=== PATIENT | female | born 1950 | race Caucasian/White ===

== ENCOUNTER 2019-11-24 20:32 | Inpatient (IN) | payer MEDICARE, OTHER ==
[2019-11-24] MEDS ORDERED: Sodium Chloride 0.9% 10 ML Syringe FLUSH PRN (20:58)
[2019-11-24] MEDS ORDERED: Sodium Chloride 0.9% 1,000 ML IV ONE (20:58)
[2019-11-24] MEDS ORDERED: Acetaminophen 500 MG Tab PO ONE (20:59)
--- NOTE | 2019-11-24 21:05 | EDM.PDOC ---
ED HPI GENERAL MEDICAL PROBLEM - General Chief Complaint: Fever Stated Complaint: weakness/fever Time Seen by Provider: 11/24/19 20:50 Source of Information: Reports: Patient History Limitations: Reports: No Limitations - History of Present Illness INITIAL COMMENTS - FREE TEXT/NARRATIVE: 69 YO WF with PMH of Pancreatic CA on chemo therapy presents to ER with complaints of weakness and low grade fever x 3 days. Pt reports she was diagnosed with a UTI 1 week ago. Pt went to Oncologist and had a fever at that time urine showed UTI and patient was started on Cipro. Pt had Chemo infusion which began 11/20/2019 and finished 11/22/2019 and since that time she has felt weak , no appetite, with mild abdominal pain which has been constant since her pancreatic CA diagnosis. Pt denies chest pain, shortness of breath, no cough/ congestion. Pt denies any recent travel or COVID exposures. Pt denies dysuria, frequency or urgency. Pt alert and oriented x 4. Pt reports no nausea/vomiting, no diarrhea. Onset Date: 11/22/19 Duration: Day(s): (3) Location: Reports: Generalized Severity: Mild Improves with: Reports: None Worsens with: Reports: None Associated Symptoms: Reports: Fever/Chills, Loss of Appetite, Malaise, Weakness Right Upper Abdomen Pain Score (Numeric/FACES): 5 - Related Data Allergies Allergy/AdvReac Type Severity Reaction Status Date / Time No Known Allergies Allergy Verified 11/24/19 21:01 Home Meds: Home Meds Aspirin [Halfprin] 81 mg PO DAILY 11/22/19 [History] Ciprofloxacin [Ciprofloxacin HCl] 500 mg PO DAILY 11/22/19 [History] Levothyroxine 150 mcg PO ACBREAKFAST 11/22/19 [History] Loperamide [Imodium] 4 mg PO ASDIRECTED PRN 11/22/19 [History] Ondansetron [Zofran ODT] 4 mg PO TID PRN 11/22/19 [History] Prochlorperazine [Compazine] 10 mg PO Q6H PRN 11/22/19 [History] atorvaSTATin [Lipitor] 10 mg PO DAILY 11/22/19 [History] dexAMETHasone [Dexamethasone] 8 mg PO DAILY 11/22/19 [History] fluorouraciL [Fluorouracil] 4,440 mg IV ASDIRECTED 11/22/19 [History] oxyCODONE 5 mg PO Q6H PRN 11/22/19 [History] Past Medical History HEENT History: Reports: Impaired Vision [employer] History: Reports: Endocrine/Metabolic History: Reports: Hypothyroidism Immunologic History: Reports: Immunosuppression Oncologic (Cancer) History: Reports: Pancreatic, Other (See Below) Other Oncologic History: malignant neoplasm of the head of the pancreas - Past Surgical History HEENT Surgical History: Reports: Adenoidectomy, Tonsillectomy GI Surgical History: Reports: Colonoscopy Female Surgical History: Reports: Hysterectomy Social & Family History - Family History Family Medical History: Noncontributory - Caffeine Use Caffeine Use: Reports: None ED ROS GENERAL - Review of Systems Review Of Systems: See Below Constitutional: Reports: Fever, Chills, Malaise, Weakness HEENT: Reports: No Symptoms Respiratory: Reports: No Symptoms Cardiovascular: Reports: No Symptoms Endocrine: Reports: No Symptoms GI/Abdominal: Reports: Anorexia : Reports: No Symptoms Musculoskeletal: Reports: No Symptoms Skin: Reports: No Symptoms Neurological: Reports: No Symptoms Psychiatric: Reports: No Symptoms Hematologic/Lymphatic: Reports: No Symptoms Immunologic: Reports: No Symptoms ED EXAM, SEPSIS - Physical Exam Exam: See Below Exam Limited By: No Limitations General Appearance: Alert, WD/WN, No Apparent Distress Throat/Mouth: Normal Inspection, Normal Lips, Normal Teeth, Normal Gums, Normal Oropharynx, Normal Voice, No Airway Compromise Head: Atraumatic, Normocephalic Neck: Normal Inspection, Supple, Non-Tender, Full Range of Motion Respiratory/Chest: No Respiratory Distress, Lungs Clear, Normal Breath Sounds, No Accessory Muscle Use, Chest Non-Tender Cardiovascular: Normal Peripheral Pulses, Regular Rate, Rhythm, No Edema, No Gallop, No JVD, No Murmur, No Rub GI/Abdominal Exam: Normal Bowel Sounds, Soft, Non-Tender, No Organomegaly, No Distention, No Abnormal Bruit, No Mass, Pelvis Stable Back: Normal Inspection, Full Range of Motion, NT Extremities: Normal Inspection, Normal Range of Motion, Non-Tender, No Pedal Edema, Normal Capillary Refill Neurological: Alert, Oriented, CN II-XII Intact, Normal Cognition, Normal Gait, Normal Reflexes, No Motor/Sensory Deficits Psychiatric: Normal Affect, Normal Mood Skin: Warm, Dry, Intact, Normal Color, No Rash Lymphatic: Bilateral: No Adenopathy Course - Vital Signs Last Recorded V/S: Last Vital Signs Temp 37.8 C 11/24/19 21:17 Pulse 95 11/24/19 21:33 Resp 18 11/24/19 21:33 BP 113/73 11/24/19 21:33 Pulse Ox 91 L 11/24/19 20:35 - Orders/Labs/Meds Orders: Active Orders 24 hr Category Date Time Status Chest 2V [CR] Stat Exams 11/24/19 20:58 Ordered CULTURE BLOOD [BC] Stat Lab 11/24/19 20:58 Ordered CULTURE BLOOD [BC] Stat Lab 11/24/19 20:58 Ordered Sodium Chloride 0.9% [Normal Saline] 1,000 ml Med 11/24/19 20:58 Ordered IV BOLUS Sodium Chloride 0.9% [Saline Flush] Med 11/24/19 20:58 Ordered 10 ml FLUSH Q8HR PRN Blood Culture x2 Reflex Set [OM.PC] Stat Oth 11/24/19 20:58 Ordered Saline Lock Insert [OM.PC] Stat Oth 11/24/19 20:58 Ordered Severe Sepsis Onset Time [OM.PC] Stat Oth 11/24/19 20:58 Ordered Medication Orders Sodium Chloride (Normal Saline) 1,000 mls @ 1,000 mls/hr IV BOLUS ONE Stop: 11/24/19 21:57 Last Admin: 11/24/19 21:16 Dose: 1,000 mls/hr Sodium Chloride (Saline Flush) 10 ml FLUSH Q8HR PRN PRN Reason: keep vein open Labs: Laboratory Tests 11/24/19 11/24/19 11/24/19 Range/Units 21:10 21:10 21:10 WBC 27.91 H (5.00-10.00) 10^3/uL RBC 4.06 (3.80-5.50) 10^6/uL Hgb 10.4 L (12.0-16.0) g/dL Hct 31.4 L (37.0-47.0) % MCV 77.3 L (82.0-92.0) fL MCH 25.6 L (27.0-31.0) pg MCHC 33.1 (32.0-36.0) g/dL RDW 14.6 H (11.5-14.5) % Plt Count 278 (150-400) 10^3/uL MPV 9.4 (7.4-10.4) fL Add Manual Diff Yes Neutrophils % (Manual) 87 H (50-70) % Band Neutrophils % 5 (4-12) % Lymphocytes % (Manual) 4 L (20-40) % Monocytes % (Manual) 3 (2-8) % Eosinophils % (Manual) 1 (1-3) % Absolute Neutrophils 25.6772 Lymphocytes # (Manual) 1.1164 Monocytes # (Manual) 0.8373 Eosinophils # (Manual) 0.2791 Sodium 129 L (136-145) mmol/L Potassium 3.6 (3.3-5.3) mmol/L Chloride 90 L (98-115) mmol/L Carbon Dioxide 26.8 (21.0-32.0) mmol/L Anion Gap 15.8 H (5-15) mmol/L BUN 15 (6-25) mg/dL Creatinine 0.61 (0.51-1.17) mg/dL Est Cr Clr Drug Dosing 83.45 mL/min Estimated GFR (MDRD) > 60 mL/min Glucose 259 H (75 - 99) mg/dL Lactic Acid 1.6 (0.4-2.0) mmol/L Calcium 8.4 L (8.7-10.3) mg/dL Total Bilirubin 0.7 (0.2-1.0) mg/dL AST 28 (15-37) U/L ALT 31 (12-78) U/L Alkaline Phosphatase 255 H (46-116) IU/L Total Protein 6.0 L (6.4-8.2) g/dL Albumin 1.63 L (3.00-4.80) g/dL Specimen Type Urine Color (YELLOW) Urine Appearance (CLEAR) Urine pH (5.0-9.0) Ur Specific [place] (1.005-1.030) Urine Protein (NEGATIVE) mg/dL Urine Glucose (UA) (NEGATIVE) mg/dL Urine Ketones (NEGATIVE) mg/dL Urine Occult Blood (NEGATIVE) Urine Nitrite (NEGATIVE) Urine Bilirubin (NEGATIVE) Urine Urobilinogen (0.2-1.0) E.U./dL Ur Leukocyte Esterase (NEGATIVE) Urine RBC (0-5) /HPF Urine WBC (0-5) /HPF Ur Epithelial Cells /LPF Urine Bacteria (NONE TO FEW) /HPF 11/24/19 Range/Units 21:20 WBC (5.00-10.00) 10^3/uL RBC (3.80-5.50) 10^6/uL Hgb (12.0-16.0) g/dL Hct (37.0-47.0) % MCV (82.0-92.0) fL MCH (27.0-31.0) pg MCHC (32.0-36.0) g/dL RDW (11.5-14.5) % Plt Count (150-400) 10^3/uL MPV (7.4-10.4) fL Add Manual Diff Neutrophils % (Manual) (50-70) % Band Neutrophils % (4-12) % Lymphocytes % (Manual) (20-40) % Monocytes % (Manual) (2-8) % Eosinophils % (Manual) (1-3) % Absolute Neutrophils Lymphocytes # (Manual) Monocytes # (Manual) Eosinophils # (Manual) Sodium (136-145) mmol/L Potassium (3.3-5.3) mmol/L Chloride (98-115) mmol/L Carbon Dioxide (21.0-32.0) mmol/L Anion Gap (5-15) mmol/L BUN (6-25) mg/dL Creatinine (0.51-1.17) mg/dL Est Cr Clr Drug Dosing mL/min Estimated GFR (MDRD) mL/min Glucose (75 - 99) mg/dL Lactic Acid (0.4-2.0) mmol/L Calcium (8.7-10.3) mg/dL Total Bilirubin (0.2-1.0) mg/dL AST (15-37) U/L ALT (12-78) U/L Alkaline Phosphatase (46-116) IU/L Total Protein (6.4-8.2) g/dL Albumin (3.00-4.80) g/dL Specimen Type Urinvoid Urine Color Yellow (YELLOW) Urine Appearance Slightly cloudy H (CLEAR) Urine pH 6.0 (5.0-9.0) Ur Specific [place] 1.015 (1.005-1.030) Urine Protein 30 H (NEGATIVE) mg/dL Urine Glucose (UA) Negative (NEGATIVE) mg/dL Urine Ketones Negative (NEGATIVE) mg/dL Urine Occult Blood Negative (NEGATIVE) Urine Nitrite Negative (NEGATIVE) Urine Bilirubin Small H (NEGATIVE) Urine Urobilinogen 1.0 (0.2-1.0) E.U./dL Ur Leukocyte Esterase Negative (NEGATIVE) Urine RBC 0-5 (0-5) /HPF Urine WBC 0-5 (0-5) /HPF Ur Epithelial Cells Moderate H /LPF Urine Bacteria Few (NONE TO FEW) /HPF Meds: Medications Generic Name Dose Route Start Last Admin Trade Name Freq PRN Reason Stop Dose Admin Sodium Chloride 1,000 mls @ 1,000 mls/hr 11/24/19 20:58 11/24/19 21:16 Normal Saline IV 11/24/19 21:57 1,000 mls/hr BOLUS ONE Administration Sodium Chloride 10 ml 11/24/19 20:58 Saline Flush FLUSH Q8HR PRN keep vein open Discontinued Medications Generic Name Dose Route Start Last Admin Trade Name Freq PRN Reason Stop Dose Admin Acetaminophen 1,000 mg 11/24/19 20:59 11/24/19 21:17 Tylenol Extra Strength PO 11/24/19 21:00 1,000 mg ONETIME ONE Administration Morphine Sulfate 4 mg 11/24/19 21:24 Morphine IVPUSH 11/24/19 21:25 ONETIME ONE - Radiology Interpretation Free Text/Narrative:: CXR- atelectesis; small pleural effusions Departure - Departure Time of Disposition: 22:12 Disposition: Admitted As Inpatient 65 Condition: Fair Clinical Impression: Weakness Leukocytosis Qualifiers: Leukocytosis type: unspecified Qualified Code(s): D72.829 - Elevated white blood cell count, unspecified Fever Qualifiers: Encounter type: initial encounter - Discharge Information Referrals: PCP,Not In Area [Primary Care Provider] - Forms: ED Department Discharge Sepsis Event Note - Focused Exam Vital Signs: Vital Signs Temp Temp Pulse Resp BP Pulse Ox 11/24/19 21:33 95 18 113/73 11/24/19 21:17 37.8 C 11/24/19 20:35 37.8 C 112 H 20 104/65 91 L Date Exam was Performed: 11/24/19 Time Exam was Performed: 21:51 - My Orders Last 24 Hours: My Active Orders 11/24/19 20:58 Chest 2V [CR] Stat CULTURE BLOOD [BC] Stat CULTURE BLOOD [BC] Stat Sodium Chloride 0.9% [Normal Saline] 1,000 ml IV BOLUS Sodium Chloride 0.9% [Saline Flush] 10 ml FLUSH Q8HR PRN Blood Culture x2 Reflex Set [OM.PC] Stat Saline Lock Insert [OM.PC] Stat Severe Sepsis Onset Time [OM.PC] Stat - Assessment/Plan Admission H&P: Please use this note as an admission H&P Last 24 Hours: My Active Orders 11/24/19 20:58 Chest 2V [CR] Stat CULTURE BLOOD [BC] Stat CULTURE BLOOD [BC] Stat Sodium Chloride 0.9% [Normal Saline] 1,000 ml IV BOLUS Sodium Chloride 0.9% [Saline Flush] 10 ml FLUSH Q8HR PRN Blood Culture x2 Reflex Set [OM.PC] Stat Saline Lock Insert [OM.PC] Stat Severe Sepsis Onset Time [OM.PC] Stat Assessment:: 1. Leukocytosis 2. Fever 3. Pancreatic CA 4. Recent UTI Plan: 1. Admit to Medicine- Dr Alejandro 2. CBC/CMP in am 3. HgbA1C in am 4. Urine culture 5. Procalcitonin 6. Zosyn 4.5g IV Q6 7. Vanco 1g IV once 8. NS @125cc/hr 9. supportive care
[2019-11-24] MEDS ORDERED: Morphine 2 MG/ML Syringe IVPUSH ONE (21:24)
[2019-11-24 21:42] LABS: ANION GAP 15.8 mmol/L (5-15); CHLORIDE,CL 90 mmol/L (98-115); SODIUM,NA 129 mmol/L (136-145)
[2019-11-24] MEDS ORDERED: Piperacillin/Tazobactam 4.5 GM in Sodium Chloride 0.9% 100 ML IV ONE (22:15)
[2019-11-24] MEDS: Sodium Chloride 0.9% 1,000 ML IV SCH (22:20)
[2019-11-24] MEDS ORDERED: Sodium Chloride 0.9% 1,000 ML ONE (22:22)
--- NOTE | 2019-11-24 22:26 | CR ---
[id number] RAD/RAD Chest PA And Lateral EXAM: RAD Chest PA And Lateral CLINICAL DATA: FEVER COMPARISON: CORRELATION IS MADE WITH AUGUST 05, 2019 FINDINGS: A chest port is seen There is bibasilar discoid atelectasis There are small bilateral effusions The cardiomediastinal contour is stable IMPRESSION: CHEST PORT BIBASILAR DISCOID ATELECTASIS WITH SMALL EFFUSIONS Alfonso Jurado MD 11/24/19 [id number] Thank you for allowing us to participate in the care of your patient.
[2019-11-24] MEDS ORDERED: Sodium Chloride 0.9% 100 ML ONE (22:56)
[2019-11-25] MEDS: Piperacillin/Tazobactam 4.5 GM in Sodium Chloride 0.9% 100 ML IV SCH ×3 (04:35→15:38)
[2019-11-25 07:38] LABS: HEMOGLOBIN A1C 7.4 % (4.3-5.7)
[2019-11-25 07:42] LABS: ANION GAP 13.2 mmol/L (5-15); CHLORIDE,CL 98 mmol/L (98-115); SODIUM,NA 137 mmol/L (136-145)
[2019-11-25] MEDS: Sodium Chloride 0.9% 1,000 ML IV SCH ×2 (09:27→20:24)
--- NOTE | 2019-11-25 09:51 | PCM.HP.2 ---
H&P History of Present Illness - General Date of Service: 11/25/19 Admit Problem/Dx: Admission Diagnosis/Problem Admission Diagnosis/Problem Leukocytosis Source of Information: Patient, Old Records, Provider History Limitations: Reports: No Limitations Right Upper Abdomen Pain Score (Numeric/FACES): 5 - Related Data Allergies/Adverse Reactions: Allergies Allergy/AdvReac Type Severity Reaction Status Date / Time No Known Allergies Allergy Verified 11/24/19 21:01 Home Medications: Home Meds Aspirin [Halfprin] 81 mg PO DAILY 11/22/19 [History] Levothyroxine 150 mcg PO ACBREAKFAST 11/22/19 [History] Loperamide [Imodium] 4 mg PO ASDIRECTED PRN 11/22/19 [History] Ondansetron [Zofran ODT] 4 mg PO TID PRN 11/22/19 [History] Prochlorperazine [Compazine] 10 mg PO Q6H PRN 11/22/19 [History] atorvaSTATin [Lipitor] 10 mg PO DAILY 11/22/19 [History] dexAMETHasone [Dexamethasone] 8 mg PO DAILY 11/22/19 [History] fluorouraciL [Fluorouracil] 4,440 mg IV ASDIRECTED 11/22/19 [History] oxyCODONE 5 mg PO Q6H PRN 11/22/19 [History] Past Medical History HEENT History: Reports: Impaired Vision Genitourinary History: Reports: Other (See Below) Other Genitourinary History: Cipro x7days for UTI, diagnosed on 11/17/19 [employer] History: Reports: Endocrine/Metabolic History: Reports: Hypothyroidism Immunologic History: Reports: Immunosuppression Oncologic (Cancer) History: Reports: Pancreatic, Other (See Below) Other Oncologic History: malignant neoplasm of the head of the pancreas, 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 First round chemo on 11/20/19-11/22/19. - Past Surgical History HEENT Surgical History: Reports: Adenoidectomy, Tonsillectomy GI Surgical History: Reports: Colonoscopy Female Surgical History: Reports: Hysterectomy Social & Family History - Family History Family Medical History: Noncontributory - Tobacco Use Smoking Status *Q: Never Smoker Second Hand Smoke Exposure: No - Caffeine Use Caffeine Use: Reports: None H&P Review of Systems - Review of Systems: Review Of Systems: See Below General: Reports: Fever, Chills, Weakness, Fatigue, Night Sweats, Diaphoresis, Decreased Appetite HEENT: Reports: No Symptoms Pulmonary: Reports: No Symptoms Cardiovascular: Reports: No Symptoms Gastrointestinal: Reports: Abdominal Pain, Anorexia, Decreased Appetite. Denies : Black Stool, Bloody Stool, Constipation, Diarrhea, Difficulty Swallowing, Distension, Nausea, Vomiting Genitourinary: Reports: No Symptoms Musculoskeletal: Reports: No Symptoms Skin: Reports: No Symptoms Psychiatric: Reports: No Symptoms Neurological: Reports: No Symptoms Hematologic/Lymphatic: Denies: Swollen Glands Immunologic: Reports: No Symptoms Exam - Exam Exam: See Below - Vital Signs Vital Signs: Last Vital Signs Temp 98.5 F 11/25/19 06:03 Pulse 77 11/25/19 06:03 Resp 18 11/25/19 06:03 BP 100/61 11/25/19 06:03 Pulse Ox 94 L 11/25/19 06:03 Weight: 164 lb - Exam Quality Assessment: No: Supplemental Oxygen, Skin Breakdown General: Alert, Oriented, Cooperative HEENT: Hearing Intact, Mucosa Moist & [place], Nares Patent. No: Rhinitis Neck: Supple. No: Lymphadenopathy Lungs: Clear to Auscultation, Normal Respiratory Effort Cardiovascular: Regular Rate, Regular Rhythm, Normal S1, Normal S2 GI/Abdominal Exam: Soft, No Distention, Tender (Right upper quadrant abdominal pain), Abnormal Bowel Sounds (very faint and rare, but passing flatus). No: Distended, Guarding, Rigid, Mass, Hepatomegaly, Splenomegaly (Female) Exam: Deferred Back Exam: No: CVA Tenderness (L), CVA Tenderness (R) Extremities: Non-Tender, No Pedal Edema, Other (CADD pump port right upper chest wall). No: Pedal Edema, Leg Pain Peripheral Pulses: 2+: Radial (L), Radial (R) Skin: Warm. No: Rash, Ecchymosis, Wound, Incision Neurological: Cranial Nerves Intact, Reflexes Equal Bilateral Neuro Extensive - Mental Status: Alert, Oriented x3, Normal Mood/Affect, Normal Cognition Neuro Extensive - Motor, Sensory, Reflexes: CN II-XII Intact, Normal Gait, Normal Reflexes Psychiatric: Alert, Normal Affect, Normal Mood. No: Agitated - Patient Data Lab Results Last 24 hrs: Laboratory Results - last 24 hr 11/24/19 11/24/19 11/24/19 Range/Units 21:10 21:10 21:10 WBC 27.91 H (5.00-10.00) 10^3/uL RBC 4.06 (3.80-5.50) 10^6/uL Hgb 10.4 L (12.0-16.0) g/dL Hct 31.4 L (37.0-47.0) % MCV 77.3 L (82.0-92.0) fL MCH 25.6 L (27.0-31.0) pg MCHC 33.1 (32.0-36.0) g/dL RDW 14.6 H (11.5-14.5) % Plt Count 278 (150-400) 10^3/uL MPV 9.4 (7.4-10.4) fL Add Manual Diff Yes Neutrophils % (Manual) 87 H (50-70) % Band Neutrophils % 5 (4-12) % Lymphocytes % (Manual) 4 L (20-40) % Monocytes % (Manual) 3 (2-8) % Eosinophils % (Manual) 1 (1-3) % Absolute Neutrophils 25.6772 Lymphocytes # (Manual) 1.1164 Monocytes # (Manual) 0.8373 Eosinophils # (Manual) 0.2791 Sodium 129 L (136-145) mmol/L Potassium 3.6 (3.3-5.3) mmol/L Chloride 90 L (98-115) mmol/L Carbon Dioxide 26.8 (21.0-32.0) mmol/L Anion Gap 15.8 H (5-15) mmol/L BUN 15 (6-25) mg/dL Creatinine 0.61 (0.51-1.17) mg/dL Est Cr Clr Drug Dosing 83.45 mL/min Estimated GFR (MDRD) > 60 mL/min Glucose 259 H (75 - 99) mg/dL Hemoglobin A1c (4.3-5.7) % Lactic Acid 1.6 (0.4-2.0) mmol/L Calcium 8.4 L (8.7-10.3) mg/dL Total Bilirubin 0.7 (0.2-1.0) mg/dL AST 28 (15-37) U/L ALT 31 (12-78) U/L Alkaline Phosphatase 255 H (46-116) IU/L Total Protein 6.0 L (6.4-8.2) g/dL Albumin 1.63 L (3.00-4.80) g/dL Specimen Type Urine Color (YELLOW) Urine Appearance (CLEAR) Urine pH (5.0-9.0) Ur Specific [place] (1.005-1.030) Urine Protein (NEGATIVE) mg/dL Urine Glucose (UA) (NEGATIVE) mg/dL Urine Ketones (NEGATIVE) mg/dL Urine Occult Blood (NEGATIVE) Urine Nitrite (NEGATIVE) Urine Bilirubin (NEGATIVE) Urine Urobilinogen (0.2-1.0) E.U./dL Ur Leukocyte Esterase (NEGATIVE) Urine RBC (0-5) /HPF Urine WBC (0-5) /HPF Ur Epithelial Cells /LPF Urine Bacteria (NONE TO FEW) /HPF 11/24/19 11/25/19 11/25/19 Range/Units 21:20 07:05 07:05 WBC 28.16 H (5.00-10.00) 10^3/uL RBC 3.81 (3.80-5.50) 10^6/uL Hgb 9.8 L (12.0-16.0) g/dL Hct 30.0 L (37.0-47.0) % MCV 78.7 L (82.0-92.0) fL MCH 25.7 L (27.0-31.0) pg MCHC 32.7 (32.0-36.0) g/dL RDW 14.7 H (11.5-14.5) % Plt Count 239 (150-400) 10^3/uL MPV 9.7 (7.4-10.4) fL Add Manual Diff Yes Neutrophils % (Manual) 86 H (50-70) % Band Neutrophils % (4-12) % Lymphocytes % (Manual) 5 L (20-40) % Monocytes % (Manual) 1 L (2-8) % Eosinophils % (Manual) 8 H (1-3) % Absolute Neutrophils 24.22 Lymphocytes # (Manual) 1.41 Monocytes # (Manual) 0.28 Eosinophils # (Manual) 2.25 Sodium 137 (136-145) mmol/L Potassium 3.8 (3.3-5.3) mmol/L Chloride 98 (98-115) mmol/L Carbon Dioxide 29.6 (21.0-32.0) mmol/L Anion Gap 13.2 (5-15) mmol/L BUN 11 (6-25) mg/dL Creatinine 0.56 (0.51-1.17) mg/dL Est Cr Clr Drug Dosing 90.90 mL/min Estimated GFR (MDRD) > 60 mL/min Glucose 142 H (75 - 99) mg/dL Hemoglobin A1c 7.4 H (4.3-5.7) % Lactic Acid (0.4-2.0) mmol/L Calcium 8.0 L (8.7-10.3) mg/dL Total Bilirubin 0.6 (0.2-1.0) mg/dL AST 21 (15-37) U/L ALT 25 (12-78) U/L Alkaline Phosphatase 211 H (46-116) IU/L Total Protein 5.6 L (6.4-8.2) g/dL Albumin 1.48 L (3.00-4.80) g/dL Specimen Type Urinvoid Urine Color Yellow (YELLOW) Urine Appearance Slightly cloudy H (CLEAR) Urine pH 6.0 (5.0-9.0) Ur Specific [place] 1.015 (1.005-1.030) Urine Protein 30 H (NEGATIVE) mg/dL Urine Glucose (UA) Negative (NEGATIVE) mg/dL Urine Ketones Negative (NEGATIVE) mg/dL Urine Occult Blood Negative (NEGATIVE) Urine Nitrite Negative (NEGATIVE) Urine Bilirubin Small H (NEGATIVE) Urine Urobilinogen 1.0 (0.2-1.0) E.U./dL Ur Leukocyte Esterase Negative (NEGATIVE) Urine RBC 0-5 (0-5) /HPF Urine WBC 0-5 (0-5) /HPF Ur Epithelial Cells Moderate H /LPF Urine Bacteria Few (NONE TO FEW) /HPF Result Diagrams: 11/25/19 07:05 11/25/19 07:05 Sepsis Event Note - Evaluation Sepsis Screening Result: No Definite Risk - Focused Exam Vital Signs: Vital Signs Temp Pulse Resp BP Pulse Ox Pulse Ox 11/25/19 06:03 98.5 F 77 18 100/61 94 L 11/25/19 06:00 94 L 11/25/19 03:00 96.1 F L 63 18 90/53 L 92 L 11/24/19 22:25 98.0 F 88 18 100/44 L 93 L Date Exam was Performed: 11/25/19 Time Exam was Performed: 15:39 Problem List Initiated/Reviewed/Updated: Yes Orders Last 24hrs: Active Orders 24 hr Category Date Time Status Patient Status [ADT] Routine ADT 11/24/19 22:15 Active Oxygen Therapy [RC] .PRN Care 11/24/19 22:15 Active Up With Assistance [RC] 0900 Care 11/24/19 22:15 Active Vital Signs [RC] 0300,0700,1100,1500,1900,2300 Care 11/24/19 22:15 Active [place] [employer] Diet [DIET] Diet 11/25/19 Breakfast Active CULTURE BLOOD [BC] Stat Lab 11/24/19 21:10 Received CULTURE BLOOD [BC] Stat Lab 11/24/19 22:05 Received CULTURE URINE [RM] Stat Lab 11/24/19 21:20 Received PROCALCITONIN [REF] Routine Lab 11/25/19 07:05 Received Acetaminophen [Tylenol] Med 11/24/19 22:15 Active 650 mg PO Q4H PRN Piperacillin/Tazobactam [Zosyn] 4.5 gm Med 11/25/19 04:00 Active Sodium Chloride 0.9% [Normal Saline] 100 ml IV Q6H Sodium Chloride 0.9% [Normal Saline] 1,000 ml Med 11/24/19 22:15 Active IV ASDIRECTED Sodium Chloride 0.9% [Saline Flush] Med 11/24/19 22:15 Active 10 ml FLUSH Q8HR PRN Peripheral IV Insertion Adult [OM.PC] Routine Oth 11/24/19 22:15 Ordered Resuscitation Status Routine Resus Stat 11/24/19 22:15 Ordered Medication Orders Acetaminophen (Tylenol) 650 mg PO Q4H PRN PRN Reason: Pain (Mild 1-3)/fever Sodium Chloride (Normal Saline) 1,000 mls @ 125 mls/hr IV ASDIRECTED JUSTIN Last Admin: 11/25/19 09:27 Dose: 125 mls/hr Infusion: 11/25/19 06:20 Dose: 125 mls/hr Admin: 11/24/19 22:20 Dose: 125 mls/hr Piperacillin Sod/Tazobactam (Sod 4.5 gm/ Sodium Chloride) 100 mls @ 200 mls/hr IV Q6H JUSTIN Last Admin: 11/25/19 04:35 Dose: 200 mls/hr Sodium Chloride (Saline Flush) 10 ml FLUSH Q8HR PRN PRN Reason: keep vein open Assessment/Plan Comment:: History of present illness Mrs Burdick in the early evening hours on November [address] Bonny Alejandro, [facility] services however patient was changed to [place] services as she follows closely onc[facility] [place] [facility] [place] [facility] to [facility] cancer. Patient suffers from Pancreatic CA in which she first started having abd pains/ sx September/2019 with a very recent first-time chemotherapy came through the ED complaints of weakness and low grade fever x 3 days. Pt reported she was diagnosed with UTI I am she was seeing oncology was started at that time with ciprofloxacin in which she completed. She stated she never had symptoms consistent with UTI. Pt had Chemo infusion which began 11/20/2019 and finished 11/21 and since that time she has felt weak, no appetite, with mild abdominal pain which has been constant since her pancreatic CA diagnosis. She has no recent travel or COVID exposures that she was tested negative for influenza A and coronavirus. Urine culture/report 11/07 >100,000 CFU/mL Escherichia coli Primary Oncologist: Krish Duke MD, [facility], Yan[place] Ram, has been updated on current admission and findings. ED presentation/clinical findings/orders --CxR: Small bilateral pleural effusions --denied chest pain, shortness of breath, LUTS/flank pain, No cough or URI type sx. No rash or sore throat. No N/V/D --WBC ~27,000, neutrophilia --T: 100, SBP 104 --NA+ 129 --Alk Phos 255 --Lactate 1.6 --Cloudy Urine --Urine culture --Procalcitonin --Blood cx. --Zosyn 4.5g IV Q6 --Vanco 1g IV x1 --NS @125cc/hr --COVID-19 on 11/17 negative. _ Primary hospital problems, --Fever, suspect UTI/Pyleonephritis --Pancreatic CA,(primary) with suspect Liver mets (4 liver lesions) --Weakness, decreased appetite --Diaphoresis, flashes --Hypoalbuminuria PMH --T2DM (2/2 pancreatic CA,) A1C 7.4% ADA diet --HLD, given liver metastases will hold statin --Hypothyroidism, thyroid replacement therapy --Non-smoker Disposition/overall plan --Change to ceftriaxone given recent history of UTI/pyelonephritis/culture reveals --Discontinue both vancomycin and Zosyn. --pain control --Repeat lactate --Urine Cx --Renal US --Primary Oncologist Dr Duke office has been updated on current admission and findings.
[2019-11-25] MEDS: Acetaminophen 325 MG Tab PO PRN ×2 (11:14→23:09)
[2019-11-25] MEDS ORDERED: Acetaminophen/HYDROcodone 325-10 MG Tab PO PRN (11:46)
[2019-11-25] MEDS ORDERED: Loperamide 2 MG Cap PO PRN (15:37)
[2019-11-25] MEDS ORDERED: Ondansetron 4 MG Tab.DIS PO PRN (15:37)
[2019-11-25] MEDS ORDERED: Dexamethasone 4 MG Tab PO ONE (16:00)
[2019-11-26] MEDS: Levothyroxine 75 MCG Tab PO SCH ×2 (06:15→06:40)
[2019-11-26] MEDS: Omeprazole 20 MG Cap.CR PO SCH ×2 (06:15→06:40)
[2019-11-26] MEDS: Sodium Chloride 0.9% 1,000 ML IV SCH (06:30)
[2019-11-26 07:12] LABS: ANION GAP 14.3 mmol/L (5-15); CHLORIDE,CL 101 mmol/L (98-115); SODIUM,NA 139 mmol/L (136-145)
[2019-11-26] MEDS ORDERED: Potassium Chloride 20 MEQ in Premix Bag 1 BAG IV ONE ×3 (08:59→20:00)
[2019-11-26] MEDS ORDERED: Aspirin 81 MG Tab.EC PO SCH (09:00)
[2019-11-26] MEDS ORDERED: cefTRIAXone 1 GM Vial IVPUSH SCH (09:00)
[2019-11-26] MEDS ORDERED: cefTRIAXone 2 GM Vial IVPUSH ONE (09:29)
--- NOTE | 2019-11-26 09:29 | PCM.PN ---
- General Info Date of Service: 11/26/19 Functional Status: Reports: Pain Controlled, Tolerating Diet (Emesis yesterday after her supper), Urinating. Denies: Ambulating, New Symptoms, Incentive Spirometry - Review of Systems General: Reports: Weakness, Fatigue. Denies: Fever, Appetite HEENT: Reports: No Symptoms Pulmonary: Reports: No Symptoms Cardiovascular: Reports: No Symptoms Gastrointestinal: Reports: Nausea. Denies: Abdominal Pain, Constipation Genitourinary: Reports: No Symptoms Musculoskeletal: Reports: No Symptoms Skin: Reports: No Symptoms Neurological: Reports: No Symptoms Psychiatric: Reports: No Symptoms - Patient Data Vitals - Most Recent: Last Vital Signs Temp 98.0 F 11/26/19 06:09 Pulse 74 11/26/19 06:09 Resp 18 11/26/19 06:09 BP 107/60 11/26/19 06:09 Pulse Ox 94 L 11/26/19 06:09 Weight - Most Recent: 164 lb I&O - Last 24 Hours: Intake & Output 11/25/19 11/26/19 11/26/19 22:59 06:59 14:59 Intake Total 1023 1023 Output Total 1100 500 Balance -77 523 Lab Results Last 24 Hours: Laboratory Results - last 24 hr 11/25/19 11/25/19 11/26/19 Range/Units 07:05 07:05 06:35 WBC (5.00-10.00) 10^3/uL RBC (3.80-5.50) 10^6/uL Hgb (12.0-16.0) g/dL Hct (37.0-47.0) % MCV (82.0-92.0) fL MCH (27.0-31.0) pg MCHC (32.0-36.0) g/dL RDW (11.5-14.5) % Plt Count (150-400) 10^3/uL MPV (7.4-10.4) fL Add Manual Diff Neutrophils % (Manual) (50-70) % Band Neutrophils % (4-12) % Lymphocytes % (Manual) (20-40) % Monocytes % (Manual) (2-8) % Eosinophils % (Manual) (1-3) % Absolute Neutrophils Band Neutrophils # Lymphocytes # (Manual) Monocytes # (Manual) Eosinophils # (Manual) Sodium 139 (136-145) mmol/L Potassium 3.2 L (3.3-5.3) mmol/L Chloride 101 (98-115) mmol/L Carbon Dioxide 26.9 (21.0-32.0) mmol/L Anion Gap 14.3 (5-15) mmol/L BUN 7 (6-25) mg/dL Creatinine 0.48 L (0.51-1.17) mg/dL Est Cr Clr Drug Dosing 106.05 mL/min Estimated GFR (MDRD) > 60 mL/min Glucose 121 H (75 - 99) mg/dL Lactic Acid 1.5 (0.4-2.0) mmol/L Calcium 7.4 L (8.7-10.3) mg/dL Procalcitonin 7.73 H (<0.10) ng/mL 11/26/19 Range/Units 06:35 WBC 27.35 H (5.00-10.00) 10^3/uL RBC 3.42 L (3.80-5.50) 10^6/uL Hgb 8.7 L (12.0-16.0) g/dL Hct 26.8 L (37.0-47.0) % MCV 78.4 L (82.0-92.0) fL MCH 25.4 L (27.0-31.0) pg MCHC 32.5 (32.0-36.0) g/dL RDW 15.0 H (11.5-14.5) % Plt Count 244 (150-400) 10^3/uL MPV 10.3 (7.4-10.4) fL Add Manual Diff Yes Neutrophils % (Manual) 81 H (50-70) % Band Neutrophils % 1 L (4-12) % Lymphocytes % (Manual) 10 L (20-40) % Monocytes % (Manual) 2 (2-8) % Eosinophils % (Manual) 6 H (1-3) % Absolute Neutrophils 22.15 Band Neutrophils # 0.27 Lymphocytes # (Manual) 2.74 Monocytes # (Manual) 0.55 Eosinophils # (Manual) 1.64 Sodium (136-145) mmol/L Potassium (3.3-5.3) mmol/L Chloride (98-115) mmol/L Carbon Dioxide (21.0-32.0) mmol/L Anion Gap (5-15) mmol/L BUN (6-25) mg/dL Creatinine (0.51-1.17) mg/dL Est Cr Clr Drug Dosing mL/min Estimated GFR (MDRD) mL/min Glucose (75 - 99) mg/dL Lactic Acid (0.4-2.0) mmol/L Calcium (8.7-10.3) mg/dL Procalcitonin (<0.10) ng/mL Delfino Results Last 24 Hours: Microbiology 11/24/19 22:05 Aerobic Blood Culture - Preliminary Blood - Arm, Left NO GROWTH AFTER 1 DAY Anaerobic Blood Culture - Preliminary NO GROWTH AFTER 1 DAY 11/24/19 21:10 Aerobic Blood Culture - Preliminary Blood - Port-A-Cath NO GROWTH AFTER 1 DAY Anaerobic Blood Culture - Preliminary NO GROWTH AFTER 1 DAY Med Orders - Current: Current Medications Acetaminophen (Tylenol) 650 mg PO Q4H PRN PRN Reason: Pain (Mild 1-3)/fever Last Admin: 11/25/19 23:09 Dose: 650 mg Hydrocodone Bitart/Acetaminophen (Peru 325-10 Mg) 1 tab PO Q6H PRN PRN Reason: Abdominal Pain Last Admin: 11/25/19 20:17 Dose: 1 tab Aspirin (Halfprin) 81 mg PO DAILY [facility] Ceftriaxone Sodium (Rocephin) 1 gm IVPUSH Q24H [facility] Sodium Chloride (Normal Saline) 1,000 mls @ 125 mls/hr IV ASDIRECTED [facility] Last Admin: 11/26/19 06:30 Dose: 100 mls/hr Potassium Chloride 20 meq/ (Premix) 100 mls @ 50 mls/hr IV ONETIME ONE Stop: 11/26/19 10:58 Potassium Chloride 20 meq/ (Premix) 100 mls @ 50 mls/hr IV ONETIME ONE Stop: 11/26/19 15:59 Potassium Chloride 20 meq/ (Premix) 100 mls @ 50 mls/hr IV ONETIME ONE Stop: 11/26/19 21:59 Levothyroxine Sodium (Levothyroxine) 150 mcg PO ACBREAKFAST JUSTIN Last Admin: 11/26/19 06:40 Dose: Not Given Loperamide HCl (Imodium) 4 mg PO ASDIRECTED PRN PRN Reason: Diarrhea Omeprazole (Omeprazole) 20 mg PO ACBREAKFAST JUSTIN Last Admin: 11/26/19 06:40 Dose: Not Given Ondansetron HCl (Zofran Odt) 4 mg PO TID PRN PRN Reason: Nausea/Vomiting Last Admin: 11/25/19 18:54 Dose: 4 mg Sodium Chloride (Saline Flush) 10 ml FLUSH Q8HR PRN PRN Reason: keep vein open Discontinued Medications Acetaminophen (Tylenol Extra Strength) 1,000 mg PO ONETIME ONE Stop: 11/24/19 21:00 Last Admin: 11/24/19 21:17 Dose: 1,000 mg Dexamethasone (Dexamethasone) 8 mg PO ONETIME@1600 ONE Stop: 11/25/19 16:01 Last Admin: 11/25/19 16:52 Dose: Not Given Sodium Chloride (Normal Saline) 1,000 mls @ 1,000 mls/hr IV BOLUS ONE Stop: 11/24/19 21:57 Last Admin: 11/24/19 21:16 Dose: 1,000 mls/hr Piperacillin Sod/Tazobactam (Sod 4.5 gm/ Sodium Chloride) 100 mls @ 200 mls/hr IV Q6H ONE Stop: 11/24/19 22:44 Last Admin: 11/24/19 23:07 Dose: 200 mls/hr Vancomycin HCl 1 gm/ Sodium (Chloride) 250 mls @ 167 mls/hr IV ONETIME ONE Stop: 11/24/19 23:42 Last Admin: 11/25/19 00:10 Dose: 167 mls/hr Sodium Chloride (Normal Saline) Confirm Administered Dose 1,000 mls @ as directed .ROUTE .STK-MED ONE Stop: 11/24/19 22:23 Last Admin: 11/24/19 23:06 Dose: Not Given Sodium Chloride (Normal Saline) Confirm Administered Dose 100 mls @ as directed .ROUTE .STK-MED ONE Stop: 11/24/19 22:57 Last Admin: 11/24/19 23:06 Dose: Not Given Piperacillin Sod/Tazobactam (Sod 4.5 gm/ Sodium Chloride) 100 mls @ 200 mls/hr IV Q6H JUSTIN Last Admin: 11/25/19 15:38 Dose: 200 mls/hr Morphine Sulfate (Morphine) 4 mg IVPUSH ONETIME ONE Stop: 11/24/19 21:25 Last Admin: 11/24/19 23:04 Dose: 4 mg Sodium Chloride (Saline Flush) 10 ml FLUSH Q8HR PRN PRN Reason: keep vein open Stop: 11/25/19 00:01 - Exam Quality Assessment: No: Supplemental Oxygen General: Alert, Oriented, Cooperative, No Acute Distress Neck: No JVD Lungs: Clear to Auscultation, Normal Respiratory Effort, Decreased Breath Sounds (Lower bases) Cardiovascular: Regular Rate, Regular Rhythm, No Murmurs GI/Abdominal Exam: Soft, No Distention, No Mass, Tender (Tender right upper quadrant). No: Distended, Guarding, Rigid, Rebound, Mass, Hepatomegaly, Splenomegaly Back Exam: No: CVA Tenderness (R) Extremities: No: Pedal Edema Peripheral Pulses: 2+: Radial (L), Radial (R) Skin: Warm, Dry, Intact Neurological: No New Focal Deficit Psy/Mental Status: Alert, Normal Affect, Normal Mood Sepsis Event Note - Evaluation Sepsis Screening Result: No Definite Risk - Focused Exam Vital Signs: Vital Signs Temp Temp Pulse Resp BP Pulse Ox 11/26/19 06:09 98.0 F 74 18 107/60 94 L 11/26/19 02:59 97.2 F 75 18 117/72 91 L 11/25/19 23:39 98.9 F 11/25/19 23:09 100.3 F 11/25/19 23:00 100.4 F 93 18 111/63 91 L Date Exam was Performed: 11/26/19 Time Exam was Performed: 09:52 - Problem List Review Problem List Initiated/Reviewed/Updated: Yes - My Orders Last 24 Hours: My Active Orders 11/25/19 11:46 Acetaminophen/HYDROcodone [Peru 325-10 MG] 1 tab PO Q6H PRN 11/25/19 15:37 Loperamide [Imodium] 4 mg PO ASDIRECTED PRN Ondansetron [Zofran ODT] 4 mg PO TID PRN 11/26/19 07:30 Levothyroxine 150 mcg PO ACBREAKFAST Omeprazole 20 mg PO ACBREAKFAST 11/26/19 08:30 Renal Comp [US] Routine 11/26/19 08:59 Potassium Chloride [KCL 20 MEQ in Water 100 ML] 20 meq Premix Bag 1 bag IV ONETIME 11/26/19 09:00 Aspirin [Halfprin] 81 mg PO DAILY cefTRIAXone [Rocephin] 1 gm IVPUSH Q24H 11/26/19 14:00 Potassium Chloride [KCL 20 MEQ in Water 100 ML] 20 meq Premix Bag 1 bag IV ONETIME 11/26/19 20:00 Potassium Chloride [KCL 20 MEQ in Water 100 ML] 20 meq Premix Bag 1 bag IV ONETIME - Plan Plan:: History of present illness Mrs Burdick in the early evening hours on November [address] Bonny Alejandro, [facility] services however patient was changed to [place] services as she follows closely oncology [place] [facility] in [place] secondary to pancreatic cancer. Patient suffers from Pancreatic CA in which she first started having abd pains/ sx September/2019 with a very recent first-time chemotherapy came through the ED complaints of weakness and low grade fever x 3 days. Pt reported she was diagnosed with UTI I am she was seeing oncology was started at that time with ciprofloxacin in which she completed. She stated she never had symptoms consistent with UTI. Pt had Chemo infusion which began 11/20/2019 and finished 11/21 and since that time she has felt weak, no appetite, with mild abdominal pain which has been constant since her pancreatic CA diagnosis. She has no recent travel or COVID exposures that she was tested negative for influenza A and coronavirus. Urine culture/report 11/07 >100,000 CFU/mL Escherichia coli Primary Oncologist: Krish Duke MD, [facility], [facility], has been updated on current admission and findings. ED presentation/clinical findings/orders --CxR: Small bilateral pleural effusions --denied chest pain, shortness of breath, LUTS/flank pain, No cough or URI type sx. No rash or sore throat. No N/V/D --WBC ~27,000, neutrophilia --T: 100, SBP 104 --NA+ 129 --Alk Phos 255 --Lactate 1.6 --Cloudy Urine --Urine culture --Procalcitonin --Blood cx. --Zosyn 4.5g IV Q6 --Vanco 1g IV x1 --NS @125cc/hr --COVID-19 on 11/17 negative. _ Hospital course to date, 11/25: Last night after supper had emesis, seems that Zofran ODT helps with her , no overnight calls or concerns. white ct remains elevated however patient did not receive her ceftriaxone yesterday--she did receive 3 doses of Zosyn yesterday along with 1 dose of vancomycin in the ED the night before. Mildly hypokalemic today and anemic. No longer febrile however denotes brief night sweats during the night. No growth on BC to date. Primary hospital problems, --suspect UTI/Pyleonephritis --Anemia, hypochromic, microcytic, acute as lack of anisocytosis; suspsect combination of metastatic CA/recent chemo/inflammatory state/hydration, given her elevated inflammation markers, will monitor closely for any signs of degenerative left shift --Hypokalemia, target upper normal range; will need 120 meq today, combined dietary plus supplement, telemetry --Pancreatic CA,(primary) with suspect Liver mets (4 liver lesions) --Pleural Effusions, mild, bilateral, ICS, good pulm toileting. will monitor for any iatrogenic pulmonary edema, reduce fluids --Poor appetite, premedicate antiemetic, will consider megestrol if not improved , currently on glucocorticoid therapy, and to avoid any blended or pulverize foods, give patient anything she desires to eat --Weakness, mild --Diaphoresis, nighttime, --Pseudohypocalcemia, corrects to 9.4 --Hypoalbuminuria, decreased appetite, dietary consultation, patient will need small/frequent calorie-dense foods, well seasoned that are eye-appealing to the patient DVT, LMWH, teds during day GI Stress prophylaxis, PPI, change ASA to chewable PMH --T2DM (2/2 pancreatic CA,) A1C 7.4% --HLD, given liver metastases will hold statin --Hypothyroidism, thyroid replacement therapy --Non-smoker Disposition/overall plan --ceftriaxone 2gm today and 1gm q24hr. given recent history of UTI/ pyelonephritis/culture reveals --Change IV fluids to D5 1/2 with 20 KCL and reduce rate to 70 cc/h. telemetry , will monitor Accu-Cheks, will monitor for any iatrogenic pulmonary edema --Offer Zofran BEFORE meals --Add BIDAC Accu-Cheks --Assess mg level --Nutritional c/s, avoid blended or pulverize foods, --Incentive spirometer q1hr while awake --Change ASA to chewable given GI disturbance --Urine Cx pending. --Renal US report pending --Primary Oncologist Dr Duke office was updtated on 11/25 findings/plan.
[2019-11-26] MEDS: Sodium Chloride 0.9% 10 ML Syringe FLUSH PRN (09:50)
[2019-11-26] MEDS: Enoxaparin 40 MG/0.4 ML Syringe SUBCUT SCH (10:35)
--- NOTE | 2019-11-26 10:49 | US ---
[id number] US/US Renal Bilateral Exam: US Renal Bilateral Clinical Data: URINARY TRACT INFECTION CANCER OF THE PANCREAS COMPARISON: CORRELATION IS MADE WITH OCTOBER 18, 2010 FINDINGS: The right kidney measures 12.0 cm in length. The left kidney measures 11.8 cm in length. There is no hydronephrosis of either kidney There are no cystic masses There is a small amount of free fluid. The pancreas is not well seen There are multiple liver lesions consistent with metastatic disease to the liver Consider follow-up CAT scan imaging IMPRESSION: NO HYDRONEPHROSIS OR CYSTIC RENAL MASS METASTATIC LIVER DISEASE Alfonso Jurado MD 11/26/19 1049 Thank you for allowing us to participate in the care of your patient.
[2019-11-26] MEDS: Ondansetron 4 MG Tab.DIS PO PRN ×2 (11:33→17:37)
[2019-11-26] MEDS: D5 1/2 NS w/ 20 mEq/L KCl 1,000 ML IV SCH (16:11)
[2019-11-26] MEDS: Magnesium Oxide 500 MG Tab PO SCH (16:19)
[2019-11-26] MEDS: Acetaminophen 325 MG Tab PO PRN (16:19)
[2019-11-27] MEDS: Acetaminophen 325 MG Tab PO PRN ×2 (03:27→15:55)
[2019-11-27] MEDS: D5 1/2 NS w/ 20 mEq/L KCl 1,000 ML IV SCH (06:36)
[2019-11-27] MEDS: Levothyroxine 75 MCG Tab PO SCH (07:25)
[2019-11-27] MEDS: Ondansetron 4 MG Tab.DIS PO PRN ×2 (07:25→11:59)
[2019-11-27] MEDS: Omeprazole 20 MG Cap.CR PO SCH (07:26)
[2019-11-27] MEDS: Aspirin 81 MG Tab.Chew PO SCH ×2 (08:06→21:33)
[2019-11-27] MEDS: Sodium Chloride 0.9% 10 ML Syringe FLUSH PRN (08:20)
[2019-11-27] MEDS: cefTRIAXone 1 GM Vial IVPUSH SCH (08:22)
[2019-11-27] MEDS: Magnesium Oxide 500 MG Tab PO SCH (08:22)
[2019-11-27] MEDS ORDERED: Insulin Aspart 100 Units/ML 3 ML Pen SUBCUT ONE (09:40)
[2019-11-27 09:46] LABS: ANION GAP 22.8 mmol/L (5-15); CHLORIDE,CL 98 mmol/L (98-115); SODIUM,NA 142 mmol/L (136-145)
[2019-11-27] MEDS: Enoxaparin 40 MG/0.4 ML Syringe SUBCUT SCH (09:59)
--- NOTE | 2019-11-27 10:10 | PCM.PN ---
- General Info Date of Service: 11/27/19 Functional Status: Reports: Pain Controlled, Tolerating Diet, Urinating, Incentive Spirometry (1400 of 1600 goals). Denies: Ambulating - Review of Systems General: Reports: Fever (Fever 101 0300 this a.m.) HEENT: Reports: No Symptoms Pulmonary: Reports: No Symptoms Cardiovascular: Reports: No Symptoms Gastrointestinal: Reports: No Symptoms. Denies: Diarrhea, Nausea Genitourinary: Reports: No Symptoms Musculoskeletal: Reports: No Symptoms Skin: Reports: No Symptoms Neurological: Reports: No Symptoms Psychiatric: Reports: No Symptoms - Patient Data Vitals - Most Recent: Last Vital Signs Temp 97.0 F 11/27/19 06:52 Pulse 96 11/27/19 06:52 Resp 20 11/27/19 06:52 BP 107/71 11/27/19 06:52 Pulse Ox 93 L 11/27/19 06:52 Weight - Most Recent: 164 lb I&O - Last 24 Hours: Intake & Output 11/26/19 11/27/19 11/27/19 22:59 06:59 14:59 Intake Total 1258 870 Output Total 400 1200 Balance 858 -330 Lab Results Last 24 Hours: Laboratory Results - last 24 hr 11/26/19 11/26/19 11/27/19 Range/Units 06:35 17:16 06:30 WBC 26.98 H (5.00-10.00) 10^3/uL RBC 3.35 L (3.80-5.50) 10^6/uL Hgb 8.5 L (12.0-16.0) g/dL Hct 25.8 L (37.0-47.0) % MCV 77.0 L (82.0-92.0) fL MCH 25.4 L (27.0-31.0) pg MCHC 32.9 (32.0-36.0) g/dL RDW 15.0 H (11.5-14.5) % Plt Count 286 (150-400) 10^3/uL MPV 10.0 (7.4-10.4) fL Immature Gran % (Auto) 1.6 (0.0-5.0) % Neut % (Auto) 84.3 H (50.0-70.0) % Lymph % (Auto) 6.2 L (20.0-40.0) % Overton % (Auto) 5.4 (2.0-8.0) % Eos % (Auto) 2.4 (1.0-3.0) % Baso % (Auto) 0.1 (0.0-1.0) % Immature Gran # (Auto) 0.42 (0.00-0.50) 10^3/uL Neut # (Auto) 22.75 H (2.50-7.00) 10^3/uL Lymph # (Auto) 1.67 (1.00-4.00) 10^3/uL Overton # (Auto) 1.46 H (0.10-0.80) 10^3/uL Eos # (Auto) 0.66 H (0.10-0.30) 10^3/uL Baso # (Auto) 0.02 (0.00-0.10) 10^3/uL POC Glucose 172 H (74-106) mg/dl Magnesium 1.7 L (1.8-2.4) mg/dL 11/27/19 Range/Units 07:25 WBC (5.00-10.00) 10^3/uL RBC (3.80-5.50) 10^6/uL Hgb (12.0-16.0) g/dL Hct (37.0-47.0) % MCV (82.0-92.0) fL MCH (27.0-31.0) pg MCHC (32.0-36.0) g/dL RDW (11.5-14.5) % Plt Count (150-400) 10^3/uL MPV (7.4-10.4) fL Immature Gran % (Auto) (0.0-5.0) % Neut % (Auto) (50.0-70.0) % Lymph % (Auto) (20.0-40.0) % Overton % (Auto) (2.0-8.0) % Eos % (Auto) (1.0-3.0) % Baso % (Auto) (0.0-1.0) % Immature Gran # (Auto) (0.00-0.50) 10^3/uL Neut # (Auto) (2.50-7.00) 10^3/uL Lymph # (Auto) (1.00-4.00) 10^3/uL Overton # (Auto) (0.10-0.80) 10^3/uL Eos # (Auto) (0.10-0.30) 10^3/uL Baso # (Auto) (0.00-0.10) 10^3/uL POC Glucose 230 H (74-106) mg/dl Magnesium (1.8-2.4) mg/dL Delfino Results Last 24 Hours: Microbiology 11/24/19 21:20 Urine Culture - Final Urine, Voided NO GROWTH AFTER 2 DAYS 11/24/19 22:05 Aerobic Blood Culture - Preliminary Blood - Arm, Left NO GROWTH AFTER 2 DAYS Anaerobic Blood Culture - Preliminary NO GROWTH AFTER 2 DAYS 11/24/19 21:10 Aerobic Blood Culture - Preliminary Blood - Port-A-Cath NO GROWTH AFTER 2 DAYS Anaerobic Blood Culture - Preliminary NO GROWTH AFTER 2 DAYS Med Orders - Current: Current Medications Acetaminophen (Tylenol) 650 mg PO Q4H PRN PRN Reason: Pain (Mild 1-3)/fever Last Admin: 11/27/19 03:27 Dose: 650 mg Hydrocodone Bitart/Acetaminophen ([place] 325-10 Mg) 1 tab PO Q6H PRN PRN Reason: Abdominal Pain Last Admin: 11/25/19 20:17 Dose: 1 tab Aspirin (Aspirin) 81 mg PO BEDTIME [facility] Last Admin: 11/27/19 08:06 Dose: 81 mg Ceftriaxone Sodium (Rocephin) 1 gm IVPUSH Q24H [facility] Last Admin: 11/27/19 08:22 Dose: 1 gm Enoxaparin Sodium (Lovenox) 40 mg SUBCUT Q24H [facility] Last Admin: 11/26/19 10:35 Dose: 40 mg Potassium Chloride/Dextrose/Sod Cl (D5 1/2 Ns W/ 20 Meq/L Kcl) 1,000 mls @ 70 mls/hr IV ASDIRECTED [facility] Last Admin: 11/27/19 06:36 Dose: 70 mls/hr Levothyroxine Sodium (Levothyroxine) 150 mcg PO ACBREAKFAST [facility] Last Admin: 11/27/19 07:25 Dose: 150 mcg Loperamide HCl (Imodium) 4 mg PO ASDIRECTED PRN PRN Reason: Diarrhea Magnesium Oxide (Magnesium Oxide) 500 mg PO DAILY [facility] Last Admin: 11/27/19 08:22 Dose: 500 mg Omeprazole (Omeprazole) 20 mg PO ACBREAKFAST [facility] Last Admin: 11/27/19 07:26 Dose: 20 mg Ondansetron HCl (Zofran Odt) 4 mg PO Q4H PRN PRN Reason: Nausea/Vomiting Last Admin: 11/27/19 07:25 Dose: 4 mg Sodium Chloride (Saline Flush) 10 ml FLUSH Q8HR PRN PRN Reason: keep vein open Last Admin: 11/27/19 08:20 Dose: 10 ml Discontinued Medications Acetaminophen (Tylenol Extra Strength) 1,000 mg PO ONETIME ONE Stop: 11/24/19 21:00 Last Admin: 11/24/19 21:17 Dose: 1,000 mg Aspirin (Halfprin) 81 mg PO DAILY [facility] Last Admin: 11/26/19 09:24 Dose: 81 mg Ceftriaxone Sodium (Rocephin) 1 gm IVPUSH Q24H [facility] Last Admin: 11/26/19 09:33 Dose: Not Given Ceftriaxone Sodium (Rocephin) 2 gm IVPUSH ONETIME ONE Stop: 11/26/19 09:30 Last Admin: 11/26/19 09:50 Dose: 2 gm Dexamethasone (Dexamethasone) 8 mg PO ONETIME@1600 ONE Stop: 11/25/19 16:01 Last Admin: 11/25/19 16:52 Dose: Not Given Sodium Chloride (Normal Saline) 1,000 mls @ 1,000 mls/hr IV BOLUS ONE Stop: 11/24/19 21:57 Last Admin: 11/24/19 21:16 Dose: 1,000 mls/hr Piperacillin Sod/Tazobactam (Sod 4.5 gm/ Sodium Chloride) 100 mls @ 200 mls/hr IV Q6H ONE Stop: 11/24/19 22:44 Last Admin: 11/24/19 23:07 Dose: 200 mls/hr Vancomycin HCl 1 gm/ Sodium (Chloride) 250 mls @ 167 mls/hr IV ONETIME ONE Stop: 11/24/19 23:42 Last Admin: 11/25/19 00:10 Dose: 167 mls/hr Sodium Chloride (Normal Saline) 1,000 mls @ 125 mls/hr IV ASDIRECTED [facility] Last Admin: 11/26/19 06:30 Dose: 100 mls/hr Sodium Chloride (Normal Saline) Confirm Administered Dose 1,000 mls @ as directed .ROUTE .STK-MED ONE Stop: 11/24/19 22:23 Last Admin: 11/24/19 23:06 Dose: Not Given Sodium Chloride (Normal Saline) Confirm Administered Dose 100 mls @ as directed .ROUTE .STK-MED ONE Stop: 11/24/19 22:57 Last Admin: 11/24/19 23:06 Dose: Not Given Piperacillin Sod/Tazobactam (Sod 4.5 gm/ Sodium Chloride) 100 mls @ 200 mls/hr IV Q6H [facility] Last Admin: 11/25/19 15:38 Dose: 200 mls/hr Potassium Chloride 20 meq/ (Premix) 100 mls @ 50 mls/hr IV ONETIME ONE Stop: 11/26/19 10:58 Last Admin: 11/26/19 10:00 Dose: 50 mls/hr Potassium Chloride 20 meq/ (Premix) 100 mls @ 50 mls/hr IV ONETIME ONE Stop: 11/26/19 15:59 Last Admin: 11/26/19 13:22 Dose: 50 mls/hr Potassium Chloride 20 meq/ (Premix) 100 mls @ 50 mls/hr IV ONETIME ONE Stop: 11/26/19 21:59 Last Admin: 11/26/19 20:02 Dose: 50 mls/hr Insulin Aspart (Novolog) 4 unit SUBCUT ONETIME ONE Stop: 11/27/19 09:41 Morphine Sulfate (Morphine) 4 mg IVPUSH ONETIME ONE Stop: 11/24/19 21:25 Last Admin: 11/24/19 23:04 Dose: 4 mg Ondansetron HCl (Zofran Odt) 4 mg PO TID PRN PRN Reason: Nausea/Vomiting Last Admin: 11/25/19 18:54 Dose: 4 mg Sodium Chloride (Saline Flush) 10 ml FLUSH Q8HR PRN PRN Reason: keep vein open Stop: 11/25/19 00:01 - Exam Quality Assessment: DVT Prophylaxis. No: Supplemental Oxygen General: Alert, Oriented, Cooperative, No Acute Distress Neck: No JVD Lungs: Clear to Auscultation, Normal Respiratory Effort Cardiovascular: Regular Rate, Regular Rhythm, No Murmurs (No new murmurs) GI/Abdominal Exam: Normal Bowel Sounds, Soft, Non-Tender, No Organomegaly. No: Distended, Rigid, Rebound, Tender, Hepatomegaly, Splenomegaly (Female) Exam: Deferred Back Exam: No: CVA Tenderness (L), CVA Tenderness (R) Extremities: No Pedal Edema Peripheral Pulses: 2+: Radial (L), Radial (R) Skin: Warm, Dry, Intact Psy/Mental Status: Alert, Normal Affect, Normal Mood Sepsis Event Note - Evaluation Sepsis Screening Result: No Definite Risk - Focused Exam Vital Signs: Vital Signs Temp Temp Temp Pulse Resp BP BP 11/27/19 06:52 97.0 F 96 20 107/71 11/27/19 04:15 100.7 F H 11/27/19 03:27 101.7 F H 11/27/19 02:52 101.7 F H 101.5 F H 97 20 120/70 11/26/19 22:23 98.5 F 85 20 105/57 L Pulse Ox 11/27/19 06:52 93 L 11/27/19 04:15 11/27/19 03:27 11/27/19 02:52 93 L 11/26/19 22:23 93 L Date Exam was Performed: 11/27/19 Time Exam was Performed: 14:03 - Problem List Review Problem List Initiated/Reviewed/Updated: Yes - My Orders Last 24 Hours: My Active Orders 11/26/19 09:53 Ondansetron [Zofran ODT] 4 mg PO Q4H PRN 11/26/19 09:59 Incentive Breathing [RT Incentive Spirometry] [RC] Q1HWA 11/26/19 10:00 Accu Check [Blood Glucose Check, Bedside] [RC] BIDMEALS D5 1/2 NS w/ 20 mEq/L KCl 1,000 ml IV ASDIRECTED Enoxaparin [Lovenox] 40 mg SUBCUT Q24H 11/26/19 10:23 Antiembolic Devices [RC] 0900,2100 REBECCA Hose [Antiembolic Hose] [OM.PC] Routine 11/26/19 15:30 Magnesium Oxide 500 mg PO DAILY 11/27/19 03:00 Blood Culture x2 Reflex Set [OM.PC] Stat 11/27/19 03:10 CULTURE BLOOD [BC] Stat 11/27/19 06:40 BASIC METABOLIC PANEL,BMP [CHEM] Routine 11/27/19 08:00 Aspirin 81 mg PO BEDTIME 11/27/19 09:00 cefTRIAXone [Rocephin] 1 gm IVPUSH Q24H - Plan Plan:: History of present illness Mrs Burdick in the early evening hours on November [address] Bonny Alejandro, [facility] services however patient was changed to [facility] as she [facility] [place] secondary to pancreatic cancer. Patient suffers from Pancreatic CA in which she first started having abd pains/ sx September/2019 with a very recent first-time chemotherapy came through the ED complaints of weakness and low grade fever x 3 days. Pt reported she was diagnosed with UTI I am she was seeing oncology was started at that time with ciprofloxacin in which she completed. She stated she never had symptoms consistent with UTI. Pt had Chemo infusion which began 11/20/2019 and finished 11/21 and since that time she has felt weak, no appetite, with mild abdominal pain which has been constant since her pancreatic CA diagnosis. She has no recent travel or COVID exposures that she was tested negative for influenza A and coronavirus. Urine culture/report 11/07 >100,000 CFU/mL Escherichia coli Primary Oncologist: Krish Duke MD, [facility], [place], has been updated on current admission and findings. ED presentation/clinical findings/orders --CxR: Small bilateral pleural effusions --denied chest pain, shortness of breath, LUTS/flank pain, No cough or URI type sx. No rash or sore throat. No N/V/D --WBC ~27,000, neutrophilia --T: 100, SBP 104 --NA+ 129 --Alk Phos 255 --Lactate 1.6 --Cloudy Urine --Urine culture --Procalcitonin --Blood cx. --Zosyn 4.5g IV Q6 --Vanco 1g IV x1 --NS @125cc/hr --COVID-19 on 11/17 negative. _ Hospital course to date, 11/25: Last night after supper had emesis, seems that Zofran ODT helps with her , no overnight calls or concerns. white ct remains elevated however patient did not receive her ceftriaxone yesterday--she did receive 3 doses of Zosyn yesterday along with 1 dose of vancomycin in the ED the night before. Mildly hypokalemic today and anemic. No longer febrile however denotes brief night sweats during the night. No growth on BC to date. 11/26: On rounds patient sitting in chair conversing, feels 100% better, no longer nausea no vomiting, fever spike 101 0300 his a.m. blood cultures drawn, no growth on previous blood cultures, urinating well, hydrated, BP/MAP good. tolerating diet, no longer abd pain, no cough/SOB/sputum. demies any diarrhea, No flank pain or LUTS. Desires to go home. Appetite improved. Favorable renal ultrasound with no hydronephrosis, or masses Primary hospital problems, --Neutrophilia, neutrophilia trending down, white count remains elevated without specific source, if fever spikes we'll place her back on Zosyn and then perform abdomen chest pelvis CT --Anemia, hypochromic, microcytic, acute as lack of anisocytosis; suspect combination of metastatic CA/recent chemo/inflammatory state/hydration, given her elevated inflammation markers, will monitor closely for any signs of degenerative left shift. --Hypokalemia, resolved, target upper normal range; yesterday received 120 meq today, with appetite improved will give only mild PO today. --Pancreatic CA,(primary) with suspect Liver mets (4 liver lesions) --Pleural Effusions, mild, bilateral, ICS, good pulm toileting. will monitor for any iatrogenic pulmonary edema, Stop fluids after current bag. --Poor appetite, premedicate antiemetic, much improved. will consider megestrol if worsens after 2nd chemo round as o/P. currently on glucocorticoid therapy, and to avoid any blended or pulverize foods, give patient anything she desires to eat --Diaphoresis, nighttime, --Pseudohypocalcemia, corrects to to albumin --Hypoalbuminuria, appetite is improving, dietary consultation, patient will need small/frequent calorie-dense foods, well seasoned that are eye-appealing to the patient. DVT, LMWH, teds during day GI Stress prophylaxis, PPI, changed ASA to chewable PMH --T2DM (2/2 pancreatic CA,) A1C 7.4%, hyperglycemia this a.m., 4 units NovoLog --HLD, given liver metastases will hold statin --Hypothyroidism, thyroid replacement therapy --Non-smoker Disposition/overall plan --Continue with inpatient stay today, continue Rocephin --IF any fevers, Place patient back on Zoysn, and make NPO for expected abdomen chest pelvis CT --Discontinue IV fluids after current bag, --NovoLog 4 units now --Offer Zofran BEFORE meals, -avoid blended or pulverize foods, --Add BIDAC Accu-Cheks --Continue magnesium oral replacement,- --Incentive spirometer q1hr while awake, goal ~1600 --Primary Oncologist Dr Duke office was updated on patient's clinical condition/findings/treatment plan
[2019-11-27] MEDS: Piperacillin/Tazobactam 4.5 GM in Sodium Chloride 0.9% 100 ML IV SCH ×2 (15:57→21:34)
[2019-11-27] MEDS ORDERED: Diatrizoate Meglumine/Diatrizoate Sodium 37% 120 ML Bottle PO ONE (17:31)
[2019-11-27] MEDS ORDERED: Iopamidol 755 Mg/ML 100 ML Bottle IV ONE (17:32)
[2019-11-27] MEDS ORDERED: Sodium Chloride 0.9% 50 ML IV SCH (17:45)
[2019-11-27] MEDS ORDERED: Potassium Bicarbonate 25 MEQ Tab.EFF PO ONE (18:00)
[2019-11-28] MEDS: Sodium Chloride 0.9% 50 ML IV SCH ×3 (03:02→23:06)
[2019-11-28] MEDS: Piperacillin/Tazobactam 4.5 GM in Sodium Chloride 0.9% 100 ML IV SCH ×4 (03:02→22:17)
[2019-11-28 08:16] LABS: ANION GAP 14.4 mmol/L (5-15); CHLORIDE,CL 100 mmol/L (98-115); SODIUM,NA 136 mmol/L (136-145)
[2019-11-28] MEDS ORDERED: Iopamidol 755 Mg/ML 100 ML Bottle IV ONE (08:37)
[2019-11-28] MEDS ORDERED: Sodium Chloride 0.9% 50 ML IV SCH (08:45)
[2019-11-28] MEDS: Levothyroxine 75 MCG Tab PO SCH (09:05)
[2019-11-28] MEDS: Omeprazole 20 MG Cap.CR PO SCH (09:06)
[2019-11-28] MEDS: Ondansetron 4 MG Tab.DIS PO PRN ×3 (09:06→18:00)
[2019-11-28] MEDS: Magnesium Oxide 500 MG Tab PO SCH (09:20)
[2019-11-28] MEDS: cefTRIAXone 1 GM Vial IVPUSH SCH (09:21)
--- NOTE | 2019-11-28 09:31 | CT ---
[id number] CT/CT Chest W IV EXAM: CT Chest W IV CLINICAL DATA: FEVER OF UNKNOWN ORIGIN. COMPARISON: Radiograph from November 24, 2019. FINDINGS: LUNGS: Small bilateral pleural effusions right greater than left with atelectasis. Dense lung parenchymal opacification the base of the right middle lobe as well. Appearance is most consistent with atelectasis at this time. No definitive evidence of pneumonia. No pneumothorax or evidence of edema. No suspicious parenchymal nodularity. HEART AND GREAT VESSELS: Unremarkable. MEDIASTINUM AND LYMPHATICS: No mediastinal or hilar lymphadenopathy. UPPER ABDOMINAL ORGANS: See report from yesterday. BONES: No evidence of osseous metastatic disease. IMPRESSION: Small bilateral pleural effusions right greater than left with right greater than left atelectasis. No definitive evidence of pneumonia or other infectious process in the chest. Other findings are described above. Ashwin Larsen MD 11/28/19 0929 Thank you for allowing us to participate in the care of your patient.
[2019-11-28] MEDS: Enoxaparin 40 MG/0.4 ML Syringe SUBCUT SCH (09:38)
[2019-11-28] MEDS ORDERED: Furosemide 40 MG/4 ML VIAL IVPUSH ONE (09:44)
[2019-11-28] MEDS: Sodium Chloride 0.9% 10 ML Syringe FLUSH PRN ×3 (09:59→15:59)
--- NOTE | 2019-11-28 10:08 | PCM.PN ---
- General Info Date of Service: 11/28/19 Functional Status: Reports: Pain Controlled, Tolerating Diet, Urinating. Denies : Ambulating, New Symptoms - Review of Systems General: Reports: Fever, Night Sweats, Appetite. Denies: Weakness, Fatigue, Malaise HEENT: Reports: No Symptoms Pulmonary: Reports: Shortness of Breath. Denies: Cough, Sputum, Hemoptysis, Wheezing Cardiovascular: Denies: Chest Pain, Orthopnea, PND, Edema Gastrointestinal: Reports: No Symptoms Genitourinary: Reports: No Symptoms Musculoskeletal: Reports: No Symptoms Skin: Reports: No Symptoms Neurological: Reports: No Symptoms Psychiatric: Reports: No Symptoms - Patient Data Vitals - Most Recent: Last Vital Signs Temp 99.6 F 11/28/19 06:51 Pulse 100 11/28/19 06:51 Resp 22 H 11/28/19 06:51 BP 114/60 11/28/19 06:51 Pulse Ox 93 L 11/28/19 06:51 Weight - Most Recent: 174 lb 3.2 oz I&O - Last 24 Hours: Intake & Output 11/27/19 11/28/19 11/28/19 22:59 06:59 14:59 Intake Total 1242 120 Output Total 600 1400 Balance 642 -1280 Lab Results Last 24 Hours: Laboratory Results - last 24 hr 11/27/19 11/27/19 11/28/19 Range/Units 06:40 17:43 07:10 WBC (5.00-10.00) 10^3/uL RBC (3.80-5.50) 10^6/uL Hgb (12.0-16.0) g/dL Hct (37.0-47.0) % MCV (82.0-92.0) fL MCH (27.0-31.0) pg MCHC (32.0-36.0) g/dL RDW (11.5-14.5) % Plt Count (150-400) 10^3/uL MPV (7.4-10.4) fL Immature Gran % (Auto) (0.0-5.0) % Neut % (Auto) (50.0-70.0) % Lymph % (Auto) (20.0-40.0) % Curry % (Auto) (2.0-8.0) % Eos % (Auto) (1.0-3.0) % Baso % (Auto) (0.0-1.0) % Immature Gran # (Auto) (0.00-0.50) 10^3/uL Neut # (Auto) (2.50-7.00) 10^3/uL Lymph # (Auto) (1.00-4.00) 10^3/uL Curry # (Auto) (0.10-0.80) 10^3/uL Eos # (Auto) (0.10-0.30) 10^3/uL Baso # (Auto) (0.00-0.10) 10^3/uL Sodium 142 136 (136-145) mmol/L Potassium 3.9 3.9 (3.3-5.3) mmol/L Chloride 98 100 (98-115) mmol/L Carbon Dioxide 25.1 25.5 (21.0-32.0) mmol/L Anion Gap 22.8 H 14.4 (5-15) mmol/L BUN 5 L 5 L (6-25) mg/dL Creatinine 0.47 L 0.53 (0.51-1.17) mg/dL Est Cr Clr Drug Dosing 108.31 96.05 mL/min Estimated GFR (MDRD) > 60 > 60 mL/min Glucose 197 H 121 H (75 - 99) mg/dL POC Glucose 176 H (74-106) mg/dl Calcium 7.0 L 7.5 L (8.7-10.3) mg/dL Total Bilirubin 0.7 (0.2-1.0) mg/dL AST 35 (15-37) U/L ALT 23 (12-78) U/L Alkaline Phosphatase 245 H (46-116) IU/L Total Protein 5.1 L (6.4-8.2) g/dL Albumin 1.27 L (3.00-4.80) g/dL 11/28/19 11/28/19 Range/Units 07:10 07:17 WBC 28.65 H (5.00-10.00) 10^3/uL RBC 3.36 L (3.80-5.50) 10^6/uL Hgb 8.6 L (12.0-16.0) g/dL Hct 25.9 L (37.0-47.0) % MCV 77.1 L (82.0-92.0) fL MCH 25.6 L (27.0-31.0) pg MCHC 33.2 (32.0-36.0) g/dL RDW 15.3 H (11.5-14.5) % Plt Count 311 (150-400) 10^3/uL MPV 9.9 (7.4-10.4) fL Immature Gran % (Auto) 1.1 (0.0-5.0) % Neut % (Auto) 85.4 H (50.0-70.0) % Lymph % (Auto) 5.5 L (20.0-40.0) % Curry % (Auto) 5.6 (2.0-8.0) % Eos % (Auto) 2.3 (1.0-3.0) % Baso % (Auto) 0.1 (0.0-1.0) % Immature Gran # (Auto) 0.31 (0.00-0.50) 10^3/uL Neut # (Auto) 24.47 H (2.50-7.00) 10^3/uL Lymph # (Auto) 1.58 (1.00-4.00) 10^3/uL Curry # (Auto) 1.60 H (0.10-0.80) 10^3/uL Eos # (Auto) 0.65 H (0.10-0.30) 10^3/uL Baso # (Auto) 0.04 (0.00-0.10) 10^3/uL Sodium (136-145) mmol/L Potassium (3.3-5.3) mmol/L Chloride (98-115) mmol/L Carbon Dioxide (21.0-32.0) mmol/L Anion Gap (5-15) mmol/L BUN (6-25) mg/dL Creatinine (0.51-1.17) mg/dL Est Cr Clr Drug Dosing mL/min Estimated GFR (MDRD) mL/min Glucose (75 - 99) mg/dL POC Glucose 127 H (74-106) mg/dl Calcium (8.7-10.3) mg/dL Total Bilirubin (0.2-1.0) mg/dL AST (15-37) U/L ALT (12-78) U/L Alkaline Phosphatase (46-116) IU/L Total Protein (6.4-8.2) g/dL Albumin (3.00-4.80) g/dL Delfino Results Last 24 Hours: Microbiology 11/27/19 03:10 Aerobic Blood Culture - Preliminary Blood - Venous NO GROWTH AFTER 1 DAY Anaerobic Blood Culture - Preliminary NO GROWTH AFTER 1 DAY 11/24/19 22:05 Aerobic Blood Culture - Preliminary Blood - Arm, Left NO GROWTH AFTER 3 DAYS Anaerobic Blood Culture - Preliminary NO GROWTH AFTER 3 DAYS 11/24/19 21:10 Aerobic Blood Culture - Preliminary Blood - Port-A-Cath NO GROWTH AFTER 3 DAYS Anaerobic Blood Culture - Preliminary NO GROWTH AFTER 3 DAYS 11/24/19 21:20 Urine Culture - Final Urine, Voided NO GROWTH AFTER 2 DAYS Med Orders - Current: Current Medications Acetaminophen (Tylenol) 650 mg PO Q4H PRN PRN Reason: Pain (Mild 1-3)/fever Last Admin: 11/27/19 15:55 Dose: 650 mg Hydrocodone Bitart/Acetaminophen ([place] 325-10 Mg) 1 tab PO Q6H PRN PRN Reason: Abdominal Pain Last Admin: 11/25/19 20:17 Dose: 1 tab Aspirin (Aspirin) 81 mg PO BEDTIME [facility] Last Admin: 11/27/19 21:33 Dose: 81 mg Ceftriaxone Sodium (Rocephin) 1 gm IVPUSH Q24H [facility] Last Admin: 11/28/19 09:21 Dose: 1 gm Enoxaparin Sodium (Lovenox) 40 mg SUBCUT Q24H [facility] Last Admin: 11/28/19 09:38 Dose: 40 mg Heparin Sodium (Porcine) (Heparin Lock Flush 100 Units/Ml) 300 units FLUSH ASDIRECTED PRN PRN Reason: IV Use Piperacillin Sod/Tazobactam (Sod 4.5 gm/ Sodium Chloride) 100 mls @ 200 mls/hr IV Q6H [facility] Last Admin: 11/28/19 03:02 Dose: 200 mls/hr Sodium Chloride (Normal Saline) 50 mls @ 125 mls/hr IV ASDIRECTED [facility] Last Admin: 11/28/19 03:02 Dose: 125 mls/hr Sodium Chloride (Normal Saline) 50 mls @ 200 mls/min IV ASDIRECTED JUSTIN Sodium Chloride (Normal Saline) 50 mls @ 200 mls/hr IV ASDIRECTED [facility] Levothyroxine Sodium (Levothyroxine) 150 mcg PO ACBREAKFAST [facility] Last Admin: 11/28/19 09:05 Dose: 150 mcg Loperamide HCl (Imodium) 4 mg PO ASDIRECTED PRN PRN Reason: Diarrhea Magnesium Oxide (Magnesium Oxide) 500 mg PO DAILY [facility] Last Admin: 11/28/19 09:20 Dose: 500 mg Omeprazole (Omeprazole) 20 mg PO ACBREAKFAST [facility] Last Admin: 11/28/19 09:06 Dose: 20 mg Ondansetron HCl (Zofran Odt) 4 mg PO Q4H PRN PRN Reason: Nausea/Vomiting Last Admin: 11/28/19 09:06 Dose: 4 mg Sodium Chloride (Saline Flush) 10 ml FLUSH Q8HR PRN PRN Reason: keep vein open Last Admin: 11/27/19 08:20 Dose: 10 ml Discontinued Medications Acetaminophen (Tylenol Extra Strength) 1,000 mg PO ONETIME ONE Stop: 11/24/19 21:00 Last Admin: 11/24/19 21:17 Dose: 1,000 mg Aspirin (Halfprin) 81 mg PO DAILY [facility] Last Admin: 11/26/19 09:24 Dose: 81 mg Ceftriaxone Sodium (Rocephin) 1 gm IVPUSH Q24H [facility] Last Admin: 11/26/19 09:33 Dose: Not Given Ceftriaxone Sodium (Rocephin) 2 gm IVPUSH ONETIME ONE Stop: 11/26/19 09:30 Last Admin: 11/26/19 09:50 Dose: 2 gm Dexamethasone (Dexamethasone) 8 mg PO ONETIME@1600 ONE Stop: 11/25/19 16:01 Last Admin: 11/25/19 16:52 Dose: Not Given Diatrizoate Meglum/Diatrizoate Sod (Gastrografin 37%) 120 ml PO ONETIME ONE Stop: 11/27/19 17:32 Last Admin: 11/27/19 18:56 Dose: 30 ml Furosemide (Lasix) 20 mg IVPUSH NOW ONE Stop: 11/28/19 09:45 Heparin Sodium (Porcine) (Heparin Lock Flush 100 Units/Ml) 500 units FLUSH ASDIRECTED PRN PRN Reason: IV Use Last Admin: 11/28/19 03:59 Dose: 500 units Sodium Chloride (Normal Saline) 1,000 mls @ 1,000 mls/hr IV BOLUS ONE Stop: 11/24/19 21:57 Last Admin: 11/24/19 21:16 Dose: 1,000 mls/hr Piperacillin Sod/Tazobactam (Sod 4.5 gm/ Sodium Chloride) 100 mls @ 200 mls/hr IV Q6H ONE Stop: 11/24/19 22:44 Last Admin: 11/24/19 23:07 Dose: 200 mls/hr Vancomycin HCl 1 gm/ Sodium (Chloride) 250 mls @ 167 mls/hr IV ONETIME ONE Stop: 11/24/19 23:42 Last Admin: 11/25/19 00:10 Dose: 167 mls/hr Sodium Chloride (Normal Saline) 1,000 mls @ 125 mls/hr IV ASDIRECTED [facility] Last Admin: 11/26/19 06:30 Dose: 100 mls/hr Sodium Chloride (Normal Saline) Confirm Administered Dose 1,000 mls @ as directed .ROUTE .STK-MED ONE Stop: 11/24/19 22:23 Last Admin: 11/24/19 23:06 Dose: Not Given Sodium Chloride (Normal Saline) Confirm Administered Dose 100 mls @ as directed .ROUTE .STK-MED ONE Stop: 11/24/19 22:57 Last Admin: 11/24/19 23:06 Dose: Not Given Piperacillin Sod/Tazobactam (Sod 4.5 gm/ Sodium Chloride) 100 mls @ 200 mls/hr IV Q6H [facility] Last Admin: 11/25/19 15:38 Dose: 200 mls/hr Potassium Chloride 20 meq/ (Premix) 100 mls @ 50 mls/hr IV ONETIME ONE Stop: 11/26/19 10:58 Last Admin: 11/26/19 10:00 Dose: 50 mls/hr Potassium Chloride 20 meq/ (Premix) 100 mls @ 50 mls/hr IV ONETIME ONE Stop: 11/26/19 15:59 Last Admin: 11/26/19 13:22 Dose: 50 mls/hr Potassium Chloride 20 meq/ (Premix) 100 mls @ 50 mls/hr IV ONETIME ONE Stop: 11/26/19 21:59 Last Admin: 11/26/19 20:02 Dose: 50 mls/hr Potassium Chloride/Dextrose/Sod Cl (D5 1/2 Ns W/ 20 Meq/L Kcl) 1,000 mls @ 70 mls/hr IV ASDIRECTED [facility] Last Admin: 11/27/19 06:36 Dose: 70 mls/hr Insulin Aspart (Novolog) 4 unit SUBCUT ONETIME ONE Stop: 11/27/19 09:41 Last Admin: 11/27/19 09:58 Dose: 4 units Iopamidol (Isovue-370 (76%)) 100 ml IV ONETIME ONE Stop: 11/27/19 17:33 Last Admin: 11/27/19 18:57 Dose: 100 ml Iopamidol (Isovue-370 (76%)) 100 ml IV ONETIME ONE Stop: 11/28/19 08:38 Morphine Sulfate (Morphine) 4 mg IVPUSH ONETIME ONE Stop: 11/24/19 21:25 Last Admin: 11/24/19 23:04 Dose: 4 mg Ondansetron HCl (Zofran Odt) 4 mg PO TID PRN PRN Reason: Nausea/Vomiting Last Admin: 11/25/19 18:54 Dose: 4 mg Potassium Bicarbonate (Klor-Con Ef) 25 meq PO ONETIME ONE Stop: 11/27/19 18:01 Last Admin: 11/27/19 20:11 Dose: 25 meq Sodium Chloride (Saline Flush) 10 ml FLUSH Q8HR PRN PRN Reason: keep vein open Stop: 11/25/19 00:01 - Exam Quality Assessment: DVT Prophylaxis. No: Supplemental Oxygen General: Alert, Oriented, Cooperative, No Acute Distress Neck: No JVD Lungs: Crackles (Lower basis). No: Normal Respiratory Effort, Rhonchi, Stridor , Wheezing Cardiovascular: Regular Rate, Regular Rhythm. No: Murmurs GI/Abdominal Exam: Soft, Non-Tender. No: Distended, Guarding, Rigid, Rebound, Tender, Hepatomegaly (Female) Exam: Deferred Back Exam: No: CVA Tenderness (L), CVA Tenderness (R) Extremities: No: No Pedal Edema, Slow Capillary Refill Peripheral Pulses: 2+: Radial (L), Radial (R) Skin: Warm, Dry, Intact Wound/Incisions: Dressing Dry and Intact, No Drainage. No: Erythema Neurological: No New Focal Deficit Psy/Mental Status: Alert, Labile Mood Sepsis Event Note - Evaluation Sepsis Screening Result: Sepsis Risk - Focused Exam Vital Signs: Vital Signs Temp Temp Pulse Resp BP BP Pulse Ox 11/28/19 06:51 99.6 F 100 22 H 114/60 93 L 11/28/19 03:00 99.1 F 90 20 109/66 94 L 11/27/19 23:25 98.9 F 90 20 103/63 95 Date Exam was Performed: 11/29/19 Time Exam was Performed: 20:32 - Problem List Review Problem List Initiated/Reviewed/Updated: Yes - My Orders Last 24 Hours: My Active Orders 11/27/19 09:00 cefTRIAXone [Rocephin] 1 gm IVPUSH Q24H 11/27/19 15:30 Piperacillin/Tazobactam [Zosyn] 4.5 gm Sodium Chloride 0.9% [Normal Saline] 100 ml IV Q6H Sodium Chloride 0.9% [Normal Saline] 50 ml IV ASDIRECTED 11/27/19 17:45 Sodium Chloride 0.9% [Normal Saline] 50 ml IV ASDIRECTED 11/27/19 23:23 Communication Order [RC] 0900,209911/28/19 07:13 Communication Order [RC] 0900,209911/28/19 08:45 Sodium Chloride 0.9% [Normal Saline] 50 ml IV ASDIRECTED 11/28/19 09:45 Heparin Sodium [Heparin Lock Flush 100 Units/ML] 300 units FLUSH ASDIRECTED PRN - Plan Plan:: History of present illness Mrs Burdick in the early evening hours on November [address] Bonny Alejandro, [facility] services however patient was changed to [facility] as she follows closely oncology [facility] in [place] secondary to pancreatic cancer. Patient suffers from Pancreatic CA in which she first started having abd pains/ sx September/2019 with a very recent first-time chemotherapy came through the ED complaints of weakness and low grade fever x 3 days. Pt reported she was diagnosed with UTI I am she was seeing oncology was started at that time with ciprofloxacin in which she completed. She stated she never had symptoms consistent with UTI. Pt had Chemo infusion which began 11/20/2019 and finished 11/21 and since that time she has felt weak, no appetite, with mild abdominal pain which has been constant since her pancreatic CA diagnosis. She has no recent travel or COVID exposures that she was tested negative for influenza A and coronavirus. Urine culture/report 11/07 >100,000 CFU/mL Escherichia coli Primary Oncologist: Krish Duke MD, [facility], [place], has been updated on current admission and findings. ED presentation/clinical findings/orders --CxR: Small bilateral pleural effusions --denied chest pain, shortness of breath, LUTS/flank pain, No cough or URI type sx. No rash or sore throat. No N/V/D --WBC ~27,000, neutrophilia --T: 100, SBP 104 --NA+ 129 --Alk Phos 255 --Lactate 1.6 --Cloudy Urine --Urine culture --Procalcitonin --Blood cx. --Zosyn 4.5g IV Q6 --Vanco 1g IV x1 --NS @125cc/hr --COVID-19 on 11/17 negative. _ Hospital course to date, 11/25: Last night after supper had emesis, seems that Zofran ODT helps with her , no overnight calls or concerns. white ct remains elevated however patient did not receive her ceftriaxone yesterday--she did receive 3 doses of Zosyn yesterday along with 1 dose of vancomycin in the ED the night before. Mildly hypokalemic today and anemic. No longer febrile however denotes brief night sweats during the night. No growth on BC to date. 11/26: On rounds patient sitting in chair conversing, feels 100% better, no longer nausea no vomiting, fever spike 101 0300 his a.m. blood cultures drawn, no growth on previous blood cultures, urinating well, hydrated, BP/MAP good. tolerating diet, no longer abd pain, no cough/SOB/sputum. demies any diarrhea, No flank pain or LUTS. Desires to go home. Appetite improved. Favorable renal ultrasound with no hydronephrosis, or masses 11/27: No overnight concerns however patient did spike a fever of 101.9 at 1600 on 49 necessitating restarting back on Zosyn, and chest CT abdomen and pelvis per oncology's recommendation. On rounds this morning she states she feels "good", sitting in the chair, slight decrease in appetite however no vomiting. Has gained 9 pounds however likely due to a combination of increased appetite and hydration due to early concerns of sepsis. BP/MAP good. White count approximate 28,000 with elevated neutrophilia 84%. Electrolytes normal. Primary hospital problems, --Neutrophilia, continue with newly started Zosyn, if fever spike we'll place back on vancomycin --Anemia, hypochromic, microcytic, acute as lack of anisocytosis; suspect combination of metastatic CA/recent chemo/inflammatory state/hydration, given her elevated inflammation markers, will monitor closely for any signs of degenerative left shift. --Hypokalemia, resolved, target upper normal range; by mouth potassium to keep upper range of normal until improved dietary. --Pancreatic CA, (primary) with Liver mets --Pleural Effusions, Bilateral small pleural effusions with atelectasis no definitive sign of pneumonia. ICS, good pulm toileting. Discontinue fluids, since increase in weight gain will add 20 mg of Lasix today only, and continue monitoring for iatrogenic pulmonary edema. --Reduced appetite, premedicate antiemetic, much improved. will consider megestrol if worsens after 2nd chemo round as o/P. currently on glucocorticoid therapy, and to avoid any blended or pulverize foods, give patient anything she desires to eat --Diaphoresis, nighttime, --Pseudohypocalcemia, corrects to albumin --Hypoalbuminemia, appetite is improving, patient will need small/frequent calorie-dense foods, well seasoned that are eye-appealing to the patient. Avoid pulverized or mechanical foods. DVT, LMWH, teds during day GI Stress prophylaxis, PPI, changed ASA to chewable PMH --T2DM (2/2 pancreatic CA,) A1C 7.4%, hyperglycemia yesterday a.m., 4 units NovoLog --HLD, given liver metastases will hold statin --Hypothyroidism, thyroid replacement therapy --Non-smoker Disposition/overall plan --Neutrophilia, continue with newly restarted Zosyn, if fever spike we'll place back on vancomycin --Offer Zofran BEFORE meals, -avoid blended or pulverize foods, --Add BIDAC Accu-Cheks --Continue magnesium oral replacement, --Incentive spirometer q1hr while awake, goal ~1600 --Communication with the patient's Primary Oncologist Dr Duke. He was updated on patient's clinical condition/findings/treatment plan. Recommends ongoing inpatient stay, and placed back on vancomycin if recurrence of fever
[2019-11-28] MEDS ORDERED: Potassium Bicarbonate 25 MEQ Tab.EFF PO ONE (17:00)
[2019-11-28] MEDS: Aspirin 81 MG Tab.Chew PO SCH (21:03)
[2019-11-28] MEDS: Acetaminophen 325 MG Tab PO PRN (22:21)
[2019-11-29] MEDS: Sodium Chloride 0.9% 10 ML Syringe FLUSH PRN ×3 (01:36→05:06)
[2019-11-29] MEDS ORDERED: Sodium Chloride 0.9% 250 ML IV SCH (03:30)
[2019-11-29] MEDS: Piperacillin/Tazobactam 4.5 GM in Sodium Chloride 0.9% 100 ML IV SCH ×2 (03:55→08:58)
[2019-11-29 07:08] VITALS: BP 98/66; PULSE 78
[2019-11-29] MEDS: Levothyroxine 75 MCG Tab PO SCH (07:56)
[2019-11-29] MEDS: Omeprazole 20 MG Cap.CR PO SCH (07:56)
[2019-11-29 09:35] LABS: ANION GAP 16.1 mmol/L (5-15); CHLORIDE,CL 99 mmol/L (98-115); SODIUM,NA 138 mmol/L (136-145)
[2019-11-29] MEDS: Magnesium Oxide 500 MG Tab PO SCH (09:44)
[2019-11-29] MEDS: Enoxaparin 40 MG/0.4 ML Syringe SUBCUT SCH (09:44)
--- NOTE | 2019-11-29 11:07 | PCM.DCSUM1 ---
Discharge Summary - Hospital Course Free Text/Narrative:: Date of admission: 11/24/19 Date of discharge: 11/29/19 Admission diagnoses: # Fever # Neutrophilia # Pancreatic cancer, stage IV with biopsy confirmed metastases to liver # Bilateral pleural effusions # Anemia # Hyponatremia # Hypochloremia # Hypoalbuminemia # Pseudohypocalcemia # Chronic nausea, secondary to recent chemotherapy # Diabetes mellitus, type 2, secondary to pancreatic cancer and glucocorticoid use # Hypothyroidism # Hyperlipidemia Discharge diagnoses: # Fever, recurrent but with improving fever curve, no evidence of underlying infection # Neutrophilia, stable # Pancreatic cancer, stage IV with biopsy confirmed metastases to liver # Bilateral pleural effusions # Anemia, stable # Hyponatremia, resolved # Hypochloremia, resolved # Hypokalemia, resolved # Hypomagnesemia, resolved # Hypoalbuminemia # Pseudohypocalcemia # Chronic nausea, secondary to recent chemotherapy # Diabetes mellitus, type 2, secondary to pancreatic cancer and glucocorticoid use # Hypothyroidism # Hyperlipidemia Consultations: Dr. Duke, [place] [facility], updated by rounding provider daily Procedures: None Imaging results: 11/24/19 CXR: Bibasilar discoid atelectasis with small effusions. Chest port. 11/26/19 Renal US: No hydronephrosis or cystic renal mass. Metastatic liver disease. 11/27/19 CT abdomen/pelvis with contrast: Pancreas head neoplasm resulting in pancreas and biliary ductal dilation. Metastatic disease throughout both lobes of the liver. Few abnormal rounded nonenhancing mesenteric/portal caval lymph nodes, also consistent with metastatic disease. 11/28/19 CT chest with contrast: Small bilateral pleural effusions right greater than left with right greater than left atelectasis. No definitive evidence of pneumonia or other infectious etiology in the chest. Hospital course: Mrs. Burdick is a 69yoF with a history of recently diagnosed (September 2019) pancreatic cancer who received first round of chemotherapy on 11/20/19 with FOLFOX. She had been initially scheduled for the first round of chemotherapy on 11/18/19, but at that time was noted to have temperature of 100.3 and cough so was subsequently evaluated at the [facility]. Lab and imaging evaluation notable for WBC 22 with neutrophilia, hgb 10.9, plt 533, negative influenza and COVID-19 testing, UA/micro consistent with infection which subsequently revealed >100,000CFU pansensitive E.coli, and CXR without acute process. She was treated with ciprofloxacin 500mg BID for 7 days. Notably, she denied any preceding urinary symptoms. She presented to the [facility] ED on 11/24/19 with complaints of weakness and fever for 3 days, but no other focal complaints. ED evaluation was notable for T 100, WBC 27 with neutrophilia, hgb 10.4, sodium 129, lactic acid 1.6, and urine unremarkable for likely infection, and CXR without evidence for infection. Vancomycin and Zosyn was started in the ED along with IVF. She was initially admitted to the [facility] service, but was noted to have never been previously seen by their clinic and care was transferred to the [place] service due to being managed by [facility]. Patient's primary oncologist, Dr. Duke, was made aware of her admission on the morning following admission and was subsequently updated daily by the rounding provider. She was initially continued on vancomycin and Zosyn for broad spectrum coverage for unknown underlying source of infection, but later de -escalated after initial blood cultures were negative, and then later restarted due to recurrent fevers, though fever trend was downtrending. Throughout her stay, she continued to feel well without focal complaints, but had persistently elevated WBC with neutrophilia. Procalcitonin prior to antibiotic administration was 7.73. There was no clinical evidence of underlying source of infection, including of neurological, head and neck, pulmonary, abdominal, urinary, or skin (including port site) source; there was also no evidence of VTE. Evaluation for source included CXR, US renal, and CT chest/abdomen/pelvis without evidence for infection. Despite this, due to well appearing and non- toxic status and initial blood culture with no growth for 4 days and follow-up blood culture with no growth for 2 days, status was discussed in detail again with primary oncologist, Dr. Duke, and she was deemed acceptable for discharge with strict discussion of return precautions and continuing on broad spectrum Augmentin until scheduled follow-up in 5 days with him. Return precautions were extensively discussed for sooner return to care, including headache, shortness of breath, cough, chest pain, abdominal pain, vomiting, diarrhea, leg pain, skin concerns, or any other concerns. Discharge and follow-up recommendations: - Discharge to home - New medications at discharge: Augmentin 875/125mg po BID x7days - Follow-up with Dr. Duke on 12/04/19 as scheduled - Discharge Data Discharge Date: 11/29/19 Discharge Disposition: Home, Self-Care 01 Condition: Good - Referral to Home Health Primary Care Physician: PCP Not In Area - Patient Instructions Diet: Usual Diet as Tolerated Activity: As Tolerated Other/Special Instructions: Treat recurrent fevers with acetaminophen (Tylenol) 500mg every 4 hours as needed. Seek medical care if new symptoms (including cough, shortness of breath, skin concerns, or pain) arise. - Discharge Plan *PRESCRIPTION DRUG MONITORING PROGRAM REVIEWED*: Not Applicable *COPY OF PRESCRIPTION DRUG MONITORING REPORT IN PATIENT ARNOL: Not Applicable Prescriptions/Med Rec: Amoxicillin/Clavulanate K [Augmentin 875-125 MG] 1 tab PO BID 7 Days #14 tablet Home Medications: Home Meds Aspirin [Halfprin] 81 mg PO DAILY 11/22/19 [History] Levothyroxine 150 mcg PO ACBREAKFAST 11/22/19 [History] Loperamide [Imodium] 4 mg PO ASDIRECTED PRN 11/22/19 [History] Ondansetron [Zofran ODT] 4 mg PO TID PRN 11/22/19 [History] Prochlorperazine [Compazine] 10 mg PO Q6H PRN 11/22/19 [History] atorvaSTATin [Lipitor] 10 mg PO DAILY 11/22/19 [History] oxyCODONE 5 mg PO Q6H PRN 11/22/19 [History] Amoxicillin/Clavulanate K [Augmentin 875-125 MG] 1 tab PO BID 7 Days #14 tablet 11/29/19 [Rx] Referrals: Bernabe Duke MD [Ordering Only Provider] - 12/04/19 (as already scheduled) - Discharge Summary/Plan Comment DC Time >30 min.: Yes - General Info Subjective Update: Denies complaints this morning. Continues feeling well despite intermittent recurrent measured fevers, last around 0130 this morning. Eating well with improving appetite since last chemotherapy on 11/20/19. Denies headache, sore throat, chest pain, shortness of breath, cough, abdominal pain, diarrhea, leg pain, difficulties ambulating, or skin concerns. - Patient Data Vitals - Most Recent: Last Vital Signs Temp 37.1 C 11/29/19 07:00 Pulse 78 11/29/19 07:00 Resp 24 H 11/29/19 07:00 BP 98/66 11/29/19 07:00 Pulse Ox 95 11/29/19 07:00 Weight - Most Recent: 75.886 kg I&O - Last 24 hours: Intake & Output 11/28/19 11/29/19 11/29/19 22:59 06:59 14:59 Intake Total 340 1110 Output Total 600 1200 Balance -260 -90 Lab Results - Last 24 hrs: Laboratory Results - last 24 hr 11/28/19 11/29/19 11/29/19 Range/Units 17:29 07:57 09:00 WBC 27.79 H (5.00-10.00) 10^3/uL RBC 3.43 L (3.80-5.50) 10^6/uL Hgb 8.6 L (12.0-16.0) g/dL Hct 26.5 L (37.0-47.0) % MCV 77.3 L (82.0-92.0) fL MCH 25.1 L (27.0-31.0) pg MCHC 32.5 (32.0-36.0) g/dL RDW 15.5 H (11.5-14.5) % Plt Count 314 (150-400) 10^3/uL MPV 9.7 (7.4-10.4) fL Immature Gran % (Auto) 1.5 (0.0-5.0) % Neut % (Auto) 84.2 H (50.0-70.0) % Lymph % (Auto) 5.6 L (20.0-40.0) % [place] % (Auto) 6.0 (2.0-8.0) % Eos % (Auto) 2.6 (1.0-3.0) % Baso % (Auto) 0.1 (0.0-1.0) % Immature Gran # (Auto) 0.42 (0.00-0.50) 10^3/uL Neut # (Auto) 23.38 H (2.50-7.00) 10^3/uL Lymph # (Auto) 1.56 (1.00-4.00) 10^3/uL [place] # (Auto) 1.68 H (0.10-0.80) 10^3/uL Eos # (Auto) 0.72 H (0.10-0.30) 10^3/uL Baso # (Auto) 0.03 (0.00-0.10) 10^3/uL Sodium (136-145) mmol/L Potassium (3.3-5.3) mmol/L Chloride (98-115) mmol/L Carbon Dioxide (21.0-32.0) mmol/L Anion Gap (5-15) mmol/L BUN (6-25) mg/dL Creatinine (0.51-1.17) mg/dL Est Cr Clr Drug Dosing mL/min Estimated GFR (MDRD) mL/min Glucose (75 - 99) mg/dL POC Glucose 170 H 133 H (74-106) mg/dl Calcium (8.7-10.3) mg/dL 11/29/19 Range/Units 09:00 WBC (5.00-10.00) 10^3/uL RBC (3.80-5.50) 10^6/uL Hgb (12.0-16.0) g/dL Hct (37.0-47.0) % MCV (82.0-92.0) fL MCH (27.0-31.0) pg MCHC (32.0-36.0) g/dL RDW (11.5-14.5) % Plt Count (150-400) 10^3/uL MPV (7.4-10.4) fL Immature Gran % (Auto) (0.0-5.0) % Neut % (Auto) (50.0-70.0) % Lymph % (Auto) (20.0-40.0) % [place] % (Auto) (2.0-8.0) % Eos % (Auto) (1.0-3.0) % Baso % (Auto) (0.0-1.0) % Immature Gran # (Auto) (0.00-0.50) 10^3/uL Neut # (Auto) (2.50-7.00) 10^3/uL Lymph # (Auto) (1.00-4.00) 10^3/uL [place] # (Auto) (0.10-0.80) 10^3/uL Eos # (Auto) (0.10-0.30) 10^3/uL Baso # (Auto) (0.00-0.10) 10^3/uL Sodium 138 (136-145) mmol/L Potassium 3.4 (3.3-5.3) mmol/L Chloride 99 (98-115) mmol/L Carbon Dioxide 26.3 (21.0-32.0) mmol/L Anion Gap 16.1 H (5-15) mmol/L BUN 6 (6-25) mg/dL Creatinine 0.51 (0.51-1.17) mg/dL Est Cr Clr Drug Dosing 99.81 mL/min Estimated GFR (MDRD) > 60 mL/min Glucose 175 H (75 - 99) mg/dL POC Glucose (74-106) mg/dl Calcium 7.5 L (8.7-10.3) mg/dL PASQUALE Results - Last 24 hrs: Microbiology 11/27/19 03:10 Aerobic Blood Culture - Preliminary Blood - Venous NO GROWTH AFTER 2 DAYS Anaerobic Blood Culture - Preliminary NO GROWTH AFTER 2 DAYS 11/24/19 22:05 Aerobic Blood Culture - Preliminary Blood - Arm, Left NO GROWTH AFTER 4 DAYS Anaerobic Blood Culture - Preliminary NO GROWTH AFTER 4 DAYS 11/24/19 21:10 Aerobic Blood Culture - Preliminary Blood - Port-A-Cath NO GROWTH AFTER 4 DAYS Anaerobic Blood Culture - Preliminary NO GROWTH AFTER 4 DAYS Med Orders - Current: Current Medications Acetaminophen (Tylenol) 650 mg PO Q4H PRN PRN Reason: Pain (Mild 1-3)/fever Last Admin: 11/28/19 22:21 Dose: 650 mg Hydrocodone Bitart/Acetaminophen (Magdalena 325-10 Mg) 1 tab PO Q6H PRN PRN Reason: Abdominal Pain Last Admin: 11/25/19 20:17 Dose: 1 tab Aspirin (Aspirin) 81 mg PO BEDTIME JUSTIN Last Admin: 11/28/19 21:03 Dose: 81 mg Enoxaparin Sodium (Lovenox) 40 mg SUBCUT Q24H [facility] Last Admin: 11/29/19 09:44 Dose: 40 mg Heparin Sodium (Porcine) (Heparin Lock Flush 100 Units/Ml) 300 units FLUSH ASDIRECTED PRN PRN Reason: IV Use Last Admin: 11/29/19 09:56 Dose: 300 units Piperacillin Sod/Tazobactam (Sod 4.5 gm/ Sodium Chloride) 100 mls @ 200 mls/hr IV Q6H [facility] Last Admin: 11/29/19 08:58 Dose: 200 mls/hr Vancomycin HCl 1.25 gm/ Sodium (Chloride) 250 mls @ 166.667 mls/hr IV Q24H [facility] Sodium Chloride (Normal Saline) 250 mls @ 200 mls/hr IV DAILY@0330 [facility] Last Admin: 11/29/19 03:48 Dose: 200 mls/hr Levothyroxine Sodium (Levothyroxine) 150 mcg PO ACBREAKFAST [facility] Last Admin: 11/29/19 07:56 Dose: 150 mcg Loperamide HCl (Imodium) 4 mg PO ASDIRECTED PRN PRN Reason: Diarrhea Last Admin: 11/28/19 12:08 Dose: 4 mg Magnesium Oxide (Magnesium Oxide) 500 mg PO DAILY [facility] Last Admin: 11/29/19 09:44 Dose: 500 mg Omeprazole (Omeprazole) 20 mg PO ACBREAKFAST [facility] Last Admin: 11/29/19 07:56 Dose: 20 mg Ondansetron HCl (Zofran Odt) 4 mg PO Q4H PRN PRN Reason: Nausea/Vomiting Last Admin: 11/28/19 18:00 Dose: 4 mg Sodium Chloride (Saline Flush) 10 ml FLUSH Q8HR PRN PRN Reason: keep vein open Last Admin: 11/29/19 05:06 Dose: 10 ml Vancomycin HCl (Pharmacy To Dose - Vancomycin) 1 dose .XX ASDIRECTED [facility] Discontinued Medications Acetaminophen (Tylenol Extra Strength) 1,000 mg PO ONETIME ONE Stop: 11/24/19 21:00 Last Admin: 11/24/19 21:17 Dose: 1,000 mg Aspirin (Halfprin) 81 mg PO DAILY [facility] Last Admin: 11/26/19 09:24 Dose: 81 mg Ceftriaxone Sodium (Rocephin) 1 gm IVPUSH Q24H [facility] Last Admin: 11/26/19 09:33 Dose: Not Given Ceftriaxone Sodium (Rocephin) 1 gm IVPUSH Q24H [facility] Last Admin: 11/28/19 09:21 Dose: 1 gm Ceftriaxone Sodium (Rocephin) 2 gm IVPUSH ONETIME ONE Stop: 11/26/19 09:30 Last Admin: 11/26/19 09:50 Dose: 2 gm Dexamethasone (Dexamethasone) 8 mg PO ONETIME@1600 ONE Stop: 11/25/19 16:01 Last Admin: 11/25/19 16:52 Dose: Not Given Diatrizoate Meglum/Diatrizoate Sod (Gastrografin 37%) 120 ml PO ONETIME ONE Stop: 11/27/19 17:32 Last Admin: 11/27/19 18:56 Dose: 30 ml Furosemide (Lasix) 20 mg IVPUSH NOW ONE Stop: 11/28/19 09:45 Last Admin: 11/28/19 09:51 Dose: 20 mg Heparin Sodium (Porcine) (Heparin Lock Flush 100 Units/Ml) 500 units FLUSH ASDIRECTED PRN PRN Reason: IV Use Last Admin: 11/28/19 03:59 Dose: 500 units Sodium Chloride (Normal Saline) 1,000 mls @ 1,000 mls/hr IV BOLUS ONE Stop: 11/24/19 21:57 Last Admin: 11/24/19 21:16 Dose: 1,000 mls/hr Piperacillin Sod/Tazobactam (Sod 4.5 gm/ Sodium Chloride) 100 mls @ 200 mls/hr IV Q6H ONE Stop: 11/24/19 22:44 Last Admin: 11/24/19 23:07 Dose: 200 mls/hr Vancomycin HCl 1 gm/ Sodium (Chloride) 250 mls @ 167 mls/hr IV ONETIME ONE Stop: 11/24/19 23:42 Last Admin: 11/25/19 00:10 Dose: 167 mls/hr Sodium Chloride (Normal Saline) 1,000 mls @ 125 mls/hr IV ASDIRECTED JUSTIN Last Admin: 11/26/19 06:30 Dose: 100 mls/hr Sodium Chloride (Normal Saline) Confirm Administered Dose 1,000 mls @ as directed .ROUTE .STK-MED ONE Stop: 11/24/19 22:23 Last Admin: 11/24/19 23:06 Dose: Not Given Sodium Chloride (Normal Saline) Confirm Administered Dose 100 mls @ as directed .ROUTE .STK-MED ONE Stop: 11/24/19 22:57 Last Admin: 11/24/19 23:06 Dose: Not Given Piperacillin Sod/Tazobactam (Sod 4.5 gm/ Sodium Chloride) 100 mls @ 200 mls/hr IV Q6H [facility] Last Admin: 11/25/19 15:38 Dose: 200 mls/hr Potassium Chloride 20 meq/ (Premix) 100 mls @ 50 mls/hr IV ONETIME ONE Stop: 11/26/19 10:58 Last Admin: 11/26/19 10:00 Dose: 50 mls/hr Potassium Chloride 20 meq/ (Premix) 100 mls @ 50 mls/hr IV ONETIME ONE Stop: 11/26/19 15:59 Last Admin: 11/26/19 13:22 Dose: 50 mls/hr Potassium Chloride 20 meq/ (Premix) 100 mls @ 50 mls/hr IV ONETIME ONE Stop: 11/26/19 21:59 Last Admin: 11/26/19 20:02 Dose: 50 mls/hr Potassium Chloride/Dextrose/Sod Cl (D5 1/2 Ns W/ 20 Meq/L Kcl) 1,000 mls @ 70 mls/hr IV ASDIRECTED [facility] Last Admin: 11/27/19 06:36 Dose: 70 mls/hr Sodium Chloride (Normal Saline) 50 mls @ 125 mls/hr IV ASDIRECTED JUSTIN Last Admin: 11/28/19 23:06 Dose: 125 mls/hr Sodium Chloride (Normal Saline) 50 mls @ 200 mls/min IV ASDIRECTED JUSTIN Sodium Chloride (Normal Saline) 50 mls @ 200 mls/hr IV ASDIRECTED JUSTIN Last Admin: 11/28/19 09:00 Dose: 200 mls/hr Vancomycin HCl 1.5 gm/ Sodium (Chloride) 250 mls @ 167 mls/hr IV ONETIME ONE Stop: 11/28/19 23:09 Last Admin: 11/28/19 23:12 Dose: 167 mls/hr Insulin Aspart (Novolog) 4 unit SUBCUT ONETIME ONE Stop: 11/27/19 09:41 Last Admin: 11/27/19 09:58 Dose: 4 units Iopamidol (Isovue-370 (76%)) 100 ml IV ONETIME ONE Stop: 11/27/19 17:33 Last Admin: 11/27/19 18:57 Dose: 100 ml Iopamidol (Isovue-370 (76%)) 100 ml IV ONETIME ONE Stop: 04/10/20 08:38 Last Admin: 11/28/19 14:54 Dose: 75 ml Morphine Sulfate (Morphine) 4 mg IVPUSH ONETIME ONE Stop: 11/24/19 21:25 Last Admin: 11/24/19 23:04 Dose: 4 mg Ondansetron HCl (Zofran Odt) 4 mg PO TID PRN PRN Reason: Nausea/Vomiting Last Admin: 11/25/19 18:54 Dose: 4 mg Potassium Bicarbonate (Klor-Con Ef) 25 meq PO ONETIME ONE Stop: 11/27/19 18:01 Last Admin: 11/27/19 20:11 Dose: 25 meq Potassium Bicarbonate (Klor-Con Ef) 25 meq PO ONETIME ONE Stop: 11/28/19 17:01 Last Admin: 11/28/19 17:16 Dose: 25 meq Sodium Chloride (Saline Flush) 10 ml FLUSH Q8HR PRN PRN Reason: keep vein open Stop: 11/25/19 00:01 - Exam Physical Findings Comments:: GENERAL: Well-appearing female appearing younger than stated age in no acute distress. HEENT: Normocephalic, atraumatic. Conjunctiva clear. Nares patent without discharge. Mucous membranes mildly dry, posterior pharynx unremarkable. NECK: Supple, no masses. CV: Regular rate and rhythm, no murmurs, rubs, or gallops. 2+ radial pulses. PULMONARY: Normal effort, clear to auscultation bilaterally, no wheezes, rales, or rhonchi. ABDOMEN: Positive bowel sounds, soft, nontender, nondistended. EXTREMITIES: No edema, cyanosis, or clubbing. No calf pain, negative Kiley sign. MUSCULOSKELETAL: Moves all extremities well. NEUROLOGICAL: No obvious deficits. DERMATOLOGIC: No rashes or suspicious lesions in exposed areas. Port site without erythema. PSYCHIATRIC: Alert, interactive, appropriate affect.
== END 2019-11-29 12:42 | disposition home or self-care (01) | DRG 809 ==
LOC: KA.ED 20:32 → KA.MS 22:14 → UNDOADMIN 22:45
PROVIDERS: ADMIT Physician Assistant Medical; ATTEND Nurse Practitioner Family
DX: D70.9 Neutropenia, unspecified (principal); R53.1 Weakness; Z87.440 Personal history of urinary (tract) infections; D72.829 Elevated white blood cell count, unspecified; C25.0 Malignant neoplasm of head of pancreas; C78.7 Secondary malignant neoplasm of liver and intrahepatic bile duct; D84.9 Immunodeficiency, unspecified; J90 Pleural effusion, not elsewhere classified; E87.1 Hypo-osmolality and hyponatremia; J98.11 Atelectasis; R50.81 Fever presenting with conditions classified elsewhere; D64.9 Anemia, unspecified; E87.8 Other disorders of electrolyte and fluid balance, not elsewhere classified; E83.42 Hypomagnesemia; E88.09 Other disorders of plasma-protein metabolism, not elsewhere classified; E83.51 Hypocalcemia; E08.9 Diabetes mellitus due to underlying condition without complications; E87.6 Hypokalemia; E03.9 Hypothyroidism, unspecified; E78.5 Hyperlipidemia, unspecified; H54.7 Unspecified visual loss; D89.9 Disorder involving the immune mechanism, unspecified; Z79.82 Long term (current) use of aspirin; Z79.890 Hormone replacement therapy; Z79.899 Other long term (current) drug therapy; Z90.89 Acquired absence of other organs; Z90.710 Acquired absence of both cervix and uterus
CPT/HCPCS: 36415; 36556; 71046; 71260; 74177; 76770; 80048; 80053; 81001; 82962; 83036; 83605; 83735; 84145; 85025; 87040; 87086; 96360; 99285-25; A9270-GY; J0696; J1642; J1650; J1815-GY; J1940; J2270; J2543; J3370; J3480; J7030; J7050; Q9963; Q9967

== ENCOUNTER 2019-12-31 15:39 | Emergency (ER) | payer MEDICARE, OTHER ==
--- NOTE | 2019-12-31 15:57 | EDM.PDOC ---
ED HPI GENERAL MEDICAL PROBLEM - General Chief Complaint: Diabetic Complaint Stated Complaint: confused Time Seen by Provider: 12/31/19 15:56 Source of Information: Reports: Patient, Family, Old Records History Limitations: Reports: Altered Mental Status (hyperglycemia. Last Sunday or after chemotherapy was the onset of confusion.) - History of Present Illness INITIAL COMMENTS - FREE TEXT/NARRATIVE: Has been experiencing confusion for the past week, since chemotherapy last Sunday the 24 dec 2019. Confusion may have been increased slightly the past 2 days, at which oncology recommended lab work being performed. Dr. Duek ordered lab work which was performed at 1341 at the [facility]. Was advised to present to the emergency department as a glucose reading of 711 was found with a BUNs 25 creatinine 0.83. Sodium is hyponatremic at 132 with chloride of 95. Potassium 4.5. Liver profile shows an alkaline phosphatase of 333 with an AST of 10 and in aVL T less than 6. WBCs 14.8 with a hemoglobin of 8.3. Platelets are 34. Glucose is being reevaluated upon her arrival before initiation of treatment. Glucose monitor, bedside unable to evaluate required lab draw. He is not known to be diabetic, but has had slight elevation secondary of steroid use with chemotherapy. Onset: Today Onset Date: 12/25/19 Duration: Day(s): Location: Reports: Head Quality: Reports: Other Severity: Severe Improves with: Reports: None Worsens with: Reports: None Associated Symptoms: Reports: Confusion - Related Data Allergies Allergy/AdvReac Type Severity Reaction Status Date / Time No Known Allergies Allergy Verified 12/31/19 16:00 Home Meds: Home Meds Levothyroxine 150 mcg PO ACBREAKFAST 11/22/19 [History] Loperamide [Imodium] 4 mg PO ASDIRECTED PRN 11/22/19 [History] Ondansetron [Zofran ODT] 4 mg PO TID PRN 11/22/19 [History] Prochlorperazine [Compazine] 10 mg PO Q6H PRN 11/22/19 [History] atorvaSTATin [Lipitor] 10 mg PO DAILY 11/22/19 [History] oxyCODONE 5 mg PO Q6H PRN 11/22/19 [History] Enoxaparin [Lovenox] 80 mg SUBCUT BID 12/31/19 [History] dexAMETHasone [Dexamethasone] 8 mg PO DAILY 12/31/19 [History] Past Medical History HEENT History: Reports: Impaired Vision Genitourinary History: Reports: Other (See Below) Other Genitourinary History: Cipro x7days for UTI, diagnosed on 11/17/19 [employer] History: Reports: Endocrine/Metabolic History: Reports: Hypothyroidism Immunologic History: Reports: Immunosuppression Oncologic (Cancer) History: Reports: Pancreatic, Other (See Below) Other Oncologic History: malignant neoplasm of the head of the pancreas, 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 First round chemo on 11/20/19-11/22/19. - Past Surgical History HEENT Surgical History: Reports: Adenoidectomy, Tonsillectomy GI Surgical History: Reports: Colonoscopy Female Surgical History: Reports: Hysterectomy Social & Family History - Family History Family Medical History: Noncontributory - Caffeine Use Caffeine Use: Reports: None ED ROS GENERAL - Review of Systems Review Of Systems: See Below Constitutional: Reports: Fever, Chills HEENT: Reports: No Symptoms Respiratory: Reports: No Symptoms Cardiovascular: Reports: No Symptoms Endocrine: Reports: Fatigue GI/Abdominal: Reports: No Symptoms : Reports: No Symptoms Musculoskeletal: Reports: No Symptoms Skin: Reports: No Symptoms Neurological: Reports: Confusion Psychiatric: Reports: No Symptoms Hematologic/Lymphatic: Reports: No Symptoms Immunologic: Reports: No Symptoms ED EXAM GENERAL NO PERIP PULSE - Physical Exam Exam: See Below Exam Limited By: No Limitations General Appearance: WD/WN, No Apparent Distress Ears: Normal External Exam, Normal Canal, Hearing Grossly Normal, Normal TMs Nose: Normal Inspection, Normal Mucosa, No Blood Throat/Mouth: Normal Inspection, Normal Lips, Normal Teeth, Normal Gums, Normal Oropharynx, Normal Voice, No Airway Compromise Head: Atraumatic, Normocephalic Neck: Normal Inspection, Supple, Non-Tender, Full Range of Motion Respiratory/Chest: No Respiratory Distress, Decreased Breath Sounds, Rhonchi Cardiovascular: Normal Peripheral Pulses, Tachycardia GI/Abdominal: Normal Bowel Sounds, Soft (mildly hyperactive, with no tenderness) , Non-Tender, No Distention (Female) Exam: Deferred Rectal (Female) Exam: Deferred Back Exam: Normal Inspection, Full Range of Motion Extremities: Normal Inspection, Normal Range of Motion, Non-Tender, Normal Capillary Refill, No Pedal Edema Neurological: Alert, Oriented, CN II-XII Intact, Normal Reflexes Psychiatric: Normal Affect, Normal Mood Lymphatic: No Adenopathy Course - Vital Signs Text/Narrative:: 2, 15 unit boluses of regular insulin were followed by insulin drip with glucose greater than 500 when tested at 1845. We will continue saline hydration and increase insulin drip to .2 units/kg with recheck a at 1930 hrs. Recommending transfer to [place] which is achieved at [address] Lentz hospitalist at [facility]. Last Recorded V/S: Last Vital Signs Temp 38.0 C 12/31/19 19:07 Pulse 112 H 12/31/19 19:07 Resp 40 H 12/31/19 19:07 BP 103/43 L 12/31/19 19:07 Pulse Ox 91 L 12/31/19 19:07 - Orders/Labs/Meds Orders: Active Orders 24 hr Category Date Time Status Communication Order [RC] ASDIRECTED Care 12/31/19 18:51 Active Diabetes Education [RC] Click to Edit Care 12/31/19 18:51 Active Notify Provider [RC] PRN Care 12/31/19 18:51 Active Peripheral IV Care [RC] . DIRECTED Care 12/31/19 16:06 Active Peripheral IV Care [RC] . DIRECTED Care 12/31/19 18:47 Active Insulin Regular, Human [NovoLIN R] 100 unit Med 12/31/19 19:00 Active Sodium Chloride 0.9% [Normal Saline] 99 ml IV TITRATE Sodium Chloride 0.9% [Normal Saline] 1,000 ml Med 12/31/19 18:47 Active IV .BOLUS Sodium Chloride 0.9% [Normal Saline] 1,000 ml Med 12/31/19 16:15 Active IV ASDIRECTED Sodium Chloride 0.9% [Saline Flush] Med 12/31/19 16:06 Active 10 ml FLUSH Q8HR PRN Sodium Chloride 0.9% [Saline Flush] Med 12/31/19 18:47 Active 10 ml FLUSH Q8HR PRN Glucose Management IV Reflex [OM.PC] Click To Edit Oth 12/31/19 18:50 Ordered Peripheral IV Insertion Adult [OM.PC] Routine Oth 12/31/19 18:47 Ordered Peripheral IV Insertion Adult [OM.PC] Stat Oth 12/31/19 16:06 Ordered Medication Orders Sodium Chloride (Normal Saline) 1,000 mls @ 125 mls/hr IV ASDIRECTED JUSTIN Last Admin: 12/31/19 16:00 Dose: 125 mls/hr Sodium Chloride (Normal Saline) 1,000 mls @ 999 mls/hr IV .BOLUS ONE Stop: 12/31/19 19:47 Last Admin: 12/31/19 19:01 Dose: 999 mls/hr Insulin Human Regular 100 unit (/ Sodium Chloride) 100 mls @ 14.96 mls/hr IV TITRATE JUSTIN; Protocol Sodium Chloride (Saline Flush) 10 ml FLUSH Q8HR PRN PRN Reason: keep vein open Last Admin: 12/31/19 16:00 Dose: 10 ml Sodium Chloride (Saline Flush) 10 ml FLUSH Q8HR PRN PRN Reason: keep vein open Labs: Laboratory Tests 12/31/19 12/31/19 12/31/19 Range/Units 16:03 16:48 18:55 Sodium 135 L (136-145) mmol/L Potassium 4.5 (3.3-5.3) mmol/L Chloride 94 L (98-115) mmol/L Carbon Dioxide 22.0 (21.0-32.0) mmol/L Anion Gap 23.5 H (5-15) mmol/L BUN 29 H (6-25) mg/dL Creatinine 0.56 (0.51-1.17) mg/dL Est Cr Clr Drug Dosing TNP Estimated GFR (MDRD) > 60 mL/min Glucose 674 H* 518 H (75 - 99) mg/dL Calcium 7.9 L (8.7-10.3) mg/dL Total Bilirubin 0.7 (0.2-1.0) mg/dL AST 12 L (15-37) U/L ALT 15 (12-78) U/L Alkaline Phosphatase 354 H (46-116) IU/L Total Protein 5.4 L (6.4-8.2) g/dL Albumin 1.73 L (3.00-4.80) g/dL Amylase 8 L (25-125) U/L Lipase 76 (73-393) U/L Specimen Type . Urine Color Yellow (YELLOW) Urine Appearance Clear (CLEAR) Urine pH 5.5 (5.0-9.0) Ur Specific [place] 1.010 (1.005-1.030) Urine Protein Negative (NEGATIVE) mg/dL Urine Glucose (UA) 500 H (NEGATIVE) mg/dL Urine Ketones 40 H (NEGATIVE) mg/dL Urine Occult Blood Negative (NEGATIVE) Urine Nitrite Negative (NEGATIVE) Urine Bilirubin Small H (NEGATIVE) Urine Urobilinogen 0.2 (0.2-1.0) E.U./dL Ur Leukocyte Esterase Negative (NEGATIVE) Meds: Medications Generic Name Dose Route Start Last Admin Trade Name Myrna PRN Reason Stop Dose Admin Sodium Chloride 1,000 mls @ 125 mls/hr 12/31/19 16:15 12/31/19 16:00 Normal Saline IV 125 mls/hr ASDIRECTED JUSTIN Administration Sodium Chloride 1,000 mls @ 999 mls/hr 12/31/19 18:47 12/31/19 19:01 Normal Saline IV 12/31/19 19:47 999 mls/hr .BOLUS ONE Administration Insulin Human Regular 100 unit 100 mls @ 14.96 mls/hr 12/31/19 19:00 / Sodium Chloride IV TITRATE JUSTIN Protocol 0.2 UNITS/KG/HR Sodium Chloride 10 ml 12/31/19 16:06 12/31/19 16:00 Saline Flush FLUSH 10 ml Q8HR PRN Administration keep vein open Sodium Chloride 10 ml 12/31/19 18:47 Saline Flush FLUSH Q8HR PRN keep vein open Discontinued Medications Generic Name Dose Route Start Last Admin Trade Name Myrna PRN Reason Stop Dose Admin Insulin Human Regular 100 unit 100 mls @ 7.48 mls/hr 12/31/19 17:30 / Sodium Chloride IV TITRATE JUSTIN Protocol 0.1 UNITS/KG/HR Insulin Human Regular 100 unit 100 mls @ 7.48 mls/hr 12/31/19 18:00 12/31/19 19:00 / Sodium Chloride IV 0.2 units/kg/hr TITRATE JUSTIN 14.96 mls/hr Titration Protocol 0.1 UNITS/KG/HR Insulin Human Regular 15 unit 12/31/19 16:28 12/31/19 16:30 Humulin R IV 12/31/19 16:29 15 units ONETIME ONE Administration Insulin Human Regular 15 unit 12/31/19 17:05 05/13/20 17:07 Humulin R IVPUSH 12/31/19 17:06 15 units ONETIME ONE Administration Departure - Departure Time of Disposition: 19:28 Disposition: DC/Tfer to [facility] 02 Condition: Fair Clinical Impression: Leukocytosis, Pancreatic cancer, Hyponatremia, Thrombocytopenia, Anemia, Hyperglycemia - Discharge Information *PRESCRIPTION DRUG MONITORING PROGRAM REVIEWED*: Not Applicable *COPY OF PRESCRIPTION DRUG MONITORING REPORT IN PATIENT ARNOL: Not Applicable Referrals: PCP,Unknown [Ordering Only Provider] - Forms: ED Department Discharge, Interfacility Transfer [facility] Sepsis Event Note - Focused Exam Vital Signs: Vital Signs Temp Pulse Resp BP Pulse Ox 12/31/19 19:07 38.0 C 112 H 40 H 103/43 L 91 L 12/31/19 18:43 117 H 34 H 82/55 L 91 L 12/31/19 18:15 37.6 C 118 H 35 H 84/54 L 91 L 12/31/19 18:00 123 H 39 H 80/61 L 91 L 12/31/19 17:45 126 H 39 H 91/64 91 L 12/31/19 17:15 37.2 C 140 H 44 H 97/51 L 93 L 12/31/19 15:45 35.7 C L 123 H 40 H 139/72 93 L Date Exam was Performed: 12/31/19 Time Exam was Performed: 19:25 - Problem List & Annotations (1) Confusion SNOMED Code(s): 949322113 Code(s): R41.0 - DISORIENTATION, UNSPECIFIED Status: Chronic Priority: High Current Visit: Yes (2) Pancreatic cancer SNOMED Code(s): 940194010 Code(s): C25.9 - MALIGNANT NEOPLASM OF PANCREAS, UNSPECIFIED Status: Chronic Priority: High Current Visit: Yes (3) Hyponatremia SNOMED Code(s): 35382118 Code(s): E87.1 - HYPO-OSMOLALITY AND HYPONATREMIA Status: Acute Priority : High Current Visit: Yes (4) Leukocytosis SNOMED Code(s): 662577803, 450066105 Code(s): D72.829 - ELEVATED WHITE BLOOD CELL COUNT, UNSPECIFIED Status: Acute Priority: High Current Visit: Yes Qualifiers: Leukocytosis type: unspecified Qualified Code(s): D72.829 - Elevated white blood cell count, unspecified (5) Thrombocytopenia SNOMED Code(s): 884793715 Code(s): D69.6 - THROMBOCYTOPENIA, UNSPECIFIED Status: Chronic Priority: High Current Visit: Yes (6) Anemia SNOMED Code(s): 975015740 Code(s): D64.9 - ANEMIA, UNSPECIFIED Status: Chronic Priority: Medium Current Visit: Yes (7) Hyperglycemia SNOMED Code(s): 24066814 Code(s): R73.9 - HYPERGLYCEMIA, UNSPECIFIED Status: Acute Priority: High Current Visit: Yes - Problem List Review Problem List Initiated/Reviewed/Updated: Yes - My Orders Last 24 Hours: My Active Orders 12/31/19 16:06 Peripheral IV Care [RC] . DIRECTED Sodium Chloride 0.9% [Saline Flush] 10 ml FLUSH Q8HR PRN Peripheral IV Insertion Adult [OM.PC] Stat 12/31/19 16:15 Sodium Chloride 0.9% [Normal Saline] 1,000 ml IV ASDIRECTED 12/31/19 18:47 Peripheral IV Care [RC] . DIRECTED Sodium Chloride 0.9% [Normal Saline] 1,000 ml IV .BOLUS Sodium Chloride 0.9% [Saline Flush] 10 ml FLUSH Q8HR PRN Peripheral IV Insertion Adult [OM.PC] Routine 12/31/19 18:50 Glucose Management IV Reflex [OM.PC] Click To Edit 12/31/19 18:51 Communication Order [RC] ASDIRECTED Diabetes Education [RC] Click to Edit Notify Provider [RC] PRN 12/31/19 19:00 Insulin Regular, Human [NovoLIN R] 100 unit Sodium Chloride 0.9% [Normal Saline] 99 ml IV TITRATE - Assessment/Plan Last 24 Hours: My Active Orders 12/31/19 16:06 Peripheral IV Care [RC] . DIRECTED Sodium Chloride 0.9% [Saline Flush] 10 ml FLUSH Q8HR PRN Peripheral IV Insertion Adult [OM.PC] Stat 12/31/19 16:15 Sodium Chloride 0.9% [Normal Saline] 1,000 ml IV ASDIRECTED 12/31/19 18:47 Peripheral IV Care [RC] . DIRECTED Sodium Chloride 0.9% [Normal Saline] 1,000 ml IV .BOLUS Sodium Chloride 0.9% [Saline Flush] 10 ml FLUSH Q8HR PRN Peripheral IV Insertion Adult [OM.PC] Routine 12/31/19 18:50 Glucose Management IV Reflex [OM.PC] Click To Edit 12/31/19 18:51 Communication Order [RC] ASDIRECTED Diabetes Education [RC] Click to Edit Notify Provider [RC] PRN 12/31/19 19:00 Insulin Regular, Human [NovoLIN R] 100 unit Sodium Chloride 0.9% [Normal Saline] 99 ml IV TITRATE
[2019-12-31] MEDS: Sodium Chloride 0.9% 1,000 ML IV SCH (16:00)
[2019-12-31] MEDS: Sodium Chloride 0.9% 10 ML Syringe FLUSH PRN (16:00)
[2019-12-31 16:30] LABS: ANION GAP 23.5 mmol/L (5-15); CHLORIDE,CL 94 mmol/L (98-115); SODIUM,NA 135 mmol/L (136-145)
[2019-12-31] MEDS: Insulin Regular, Human 100 Units/ML 10 ML Vial IV ONE (16:30)
--- NOTE | 2019-12-31 17:00 | CT ---
[id number] CT/CT Head WO IV EXAM: CT Head WO IV CLINICAL DATA: CHANGE IN MENTAL STATUS COMPARISON: NO PREVIOUS SIMILAR EXAM IS AVAILABLE FOR COMPARISON. FINDINGS: There is no mass or mass effect. There is no hemorrhage or hydrocephalus. There are no extra-axial fluid collections. There are no sites of abnormal attenuation. IMPRESSION: NO PLAIN CT EVIDENCE OF ACUTE INTRACRANIAL PROCESS. Alfonso Jurado MD 12/31/19 2481 Thank you for allowing us to participate in the care of your patient.
[2019-12-31] MEDS: Insulin Regular, Human 100 Units/ML 10 ML Vial IVPUSH ONE (17:07)
--- NOTE | 2019-12-31 17:07 | CR ---
[id number] RAD/RAD Chest PA And Lateral EXAM: RAD Chest PA And Lateral CLINICAL DATA: CHANGE IN MENTAL STATUS COMPARISON: CORRELATION IS MADE WITH NOVEMBER 24, 2019 FINDINGS: There is ascites The patient has a pancreatic malignancy The patient has metastatic disease involving the liver The patient has extensive mesenteric and retroperitoneal adenopathy There is volume loss at both lung bases The chest port is seen The cardiac silhouette is stable IMPRESSION: PROGRESSION OF METASTATIC DISEASE PROGRESSIVE ASCITES ASSOCIATED BIBASILAR ATELECTASIS Alfonso Jurado MD 12/31/19 3989 Thank you for allowing us to participate in the care of your patient.
[2019-12-31] MEDS ORDERED: Sodium Chloride 0.9% 10 ML Syringe FLUSH PRN (18:47)
[2019-12-31] MEDS: Sodium Chloride 0.9% 1,000 ML IV ONE (19:01)
== END 2019-12-31 19:50 ==
LOC: KA.ED 15:39
DX: E87.1 Hypo-osmolality and hyponatremia (principal); D72.829 Elevated white blood cell count, unspecified; C25.9 Malignant neoplasm of pancreas, unspecified; D69.6 Thrombocytopenia, unspecified; D64.9 Anemia, unspecified; E03.9 Hypothyroidism, unspecified; R73.9 Hyperglycemia, unspecified; Z79.01 Long term (current) use of anticoagulants; Z79.899 Other long term (current) drug therapy
CPT/HCPCS: 36415; 70450; 71046; 80053; 81003; 82150; 82947; 82962; 83690; 96360; 96361; 99284; 99285-25; J7030

== ENCOUNTER 2020-01-08 11:27 | Observation (INO) | payer MEDICARE, OTHER ==
[2020-01-08] MEDS ORDERED: Sodium Chloride 0.9% 10 ML Syringe FLUSH PRN (12:05)
[2020-01-08] MEDS ORDERED: oxyCODONE 5 MG Tab PO PRN (12:49)
[2020-01-08] MEDS: Sodium Chloride 0.9% 1,000 ML IV SCH ×2 (13:06→21:14)
[2020-01-08 13:11] LABS: ANION GAP 12.9 mmol/L (5-15); CHLORIDE,CL 99 mmol/L (98-115); SODIUM,NA 136 mmol/L (136-145)
[2020-01-08] MEDS ORDERED: Prochlorperazine 5 MG Tab PO PRN (13:15)
[2020-01-08] MEDS ORDERED: Potassium Chloride 20 MEQ Tab.ER PO ONE (17:02)
[2020-01-08] MEDS ORDERED: Insulin Aspart 100 Units/ML 3 ML Pen SUBCUT SCH (18:00)
[2020-01-08] MEDS ORDERED: AMYLASE PO SCH (20:30)
[2020-01-08] MEDS ORDERED: LIPASE PO SCH (20:30)
[2020-01-08] MEDS ORDERED: PROTEASE PO SCH (20:30)
[2020-01-08] MEDS ORDERED: oxyCODONE 5 MG Tab**OWN MED PO PRN (20:32)
[2020-01-08] MEDS ORDERED: PROCHLORPERAZINE 5 MG PO PRN (20:33)
[2020-01-08] MEDS ORDERED: Magnesium Oxide 500 MG Tab PO SCH (21:00)
[2020-01-08] MEDS: AMYLASE PO SCH (21:47)
[2020-01-08] MEDS: PROTEASE PO SCH (21:47)
[2020-01-08] MEDS: LIPASE PO SCH (21:47)
[2020-01-08] MEDS: MAGNESIUM OXIDE 500 MG PO SCH (21:48)
[2020-01-08] MEDS: Enoxaparin 100 MG/1 ML Syringe SUBCUT SCH (21:48)
[2020-01-09] MEDS: Sodium Chloride 0.9% 1,000 ML IV SCH (05:17)
[2020-01-09 07:23] LABS: ANION GAP 12.5 mmol/L (5-15); CHLORIDE,CL 104 mmol/L (98-115); SODIUM,NA 139 mmol/L (136-145)
[2020-01-09] MEDS ORDERED: Levothyroxine 50 MCG Tab PO SCH (07:30)
[2020-01-09] MEDS ORDERED: LEVOTHYROXINE 150 MCG PO SCH (07:30)
[2020-01-09] MEDS: LIPASE PO SCH ×2 (08:02→12:03)
[2020-01-09] MEDS: PROTEASE PO SCH ×2 (08:02→12:03)
[2020-01-09] MEDS: AMYLASE PO SCH ×2 (08:02→12:03)
[2020-01-09] MEDS: MAGNESIUM OXIDE 500 MG PO SCH (08:03)
[2020-01-09] MEDS: INSULIN ASPART 100 UNIT/ML SUBCUT SCH ×2 (08:08→12:08)
[2020-01-09] MEDS ORDERED: BASAGLAR 100 UNIT/ML SUBCUT SCH (09:00)
[2020-01-09] MEDS ORDERED: Bumetanide 1 MG Tab PO SCH ×2 (09:00)
[2020-01-09] MEDS ORDERED: atorvaSTATin 10 MG Tab PO SCH (09:00)
[2020-01-09] MEDS: Enoxaparin 100 MG/1 ML Syringe SUBCUT SCH (09:00)
[2020-01-09] MEDS ORDERED: Insulin Glargine,Human Rec. Analog 100 Units/ML 3 ML Pen SUBCUT SCH (09:00)
[2020-01-09] MEDS ORDERED: ATORVASTATIN 10 MG PO SCH (09:00)
[2020-01-09] MEDS ORDERED: Potassium Chloride 20 MEQ in Premix Bag 1 BAG IV ONE (09:57)
== END 2020-01-09 15:15 | disposition home or self-care (01) ==
LOC: KA.IVTHER 11:27 → KA.MS 11:30
PROVIDERS: ADMIT Physician Assistant Medical; ATTEND Family Medicine
DX: I95.9 Hypotension, unspecified (principal); E16.2 Hypoglycemia, unspecified; E03.9 Hypothyroidism, unspecified; E78.5 Hyperlipidemia, unspecified; C25.0 Malignant neoplasm of head of pancreas; C78.7 Secondary malignant neoplasm of liver and intrahepatic bile duct; I11.0 Hypertensive heart disease with heart failure; I50.31 Acute diastolic (congestive) heart failure; Z79.899 Other long term (current) drug therapy; Z79.890 Hormone replacement therapy; Z79.4 Long term (current) use of insulin; Z86.711 Personal history of pulmonary embolism
CPT/HCPCS: 36415; 80053; 81001; 82962; 83605; 83735; 85025; 86140; A9270; J1650; J1815; J3480; J7030; 96360; 96361; 96372; G0378